=== PATIENT | female | born 1935 | race Caucasian/White ===

== ENCOUNTER 2016-08-26 09:40 | Emergency (ER) | payer OTHER ==
[~2016-08-26] VITALS: Ht 157.5 cm; Wt 78.0 kg
[~2016-08-26 09:40] MED LIST: ACET-1256 PO; AMLO-110 PO; ASPEC81 PO; ATV5 PO; CARV6.252 PO; CNT PO; ESCI1TAB9 PO; FLEC100T21 PO; HYDR25SU20 PR; LOPELIQ6 PO; LORA0.5T12 PO; PRLSR20 PO; TRIA75TA53 PO; WARF4TAB8 PO
[2016-08-26 09:55] VITALS: TEMP 36.8; Ht 157.5 cm; Wt 78.0 kg
[2016-08-26] MEDS ORDERED: SODIUM CHLORIDE 0.9% 1000ML 1,000 ML IV STA (10:15)
[2016-08-26] MEDS ORDERED: OPTIRAY 320 IV PRN (10:30)
[2016-08-26] MEDS ORDERED: MRLP527 PO (10:34)
[2016-08-26] MEDS ORDERED: ULT50 PO (10:34)
[2016-08-26] MEDS ORDERED: ASPI81TA28 PO (10:34)
[2016-08-26 10:50] LABS: ISTAT CREATININE 1.4 mg/dl (0.6-1.3); ISTAT HEMOGLOBIN 14.3 g/dl (12.0-16.0); ISTAT IONIZED CALCIUM 1.27 mmol/l (1.12-1.32)
[2016-08-26 10:56] LABS: BASO % 0.3 %; BASO ABS # 0.03 K/uL (0-0.2); COMPLETE YES; HEMATOCRIT 39.6 % (37-47); IG% 1.2 %; LYMPH % 18.8 %; LYMPH ABS # 1.63 K/uL (1.2-3.4); MEAN CELL VOLUME 91.9 fL (80-100); MEAN CORPUSCULAR HEMOGLOBIN 31.1 pg (25-34); MEAN CORPUSCULAR HGB CONC 33.8 g/dl (32-36); MEAN PLATELET VOLUME 9.4 fL (7.4-10.4); MONO % 14.3 %; NEUT % 63.4 %; PLATELET COUNT 342 K/uL (130-400); RED BLOOD COUNT 4.31 M/uL (4.2-5.4); WHITE BLOOD COUNT 8.69 K/uL (4.8-10.8)
[2016-08-26 11:03] LABS: ALT/SGPT 20 U/L (12-78); AST/SGOT 15 U/L (15-37); BLOOD UREA NITROGEN 26 mg/dl (7-18); BUN/CREATININE RATIO 17.1 (10-20); CALCIUM 10.4 mg/dl (8.5-10.1); CARBON DIOXIDE 27 mmol/L (21-32); CHLORIDE 102 mmol/L (98-107); GLUCOSE 109 mg/dl (70-99); MAGNESIUM 2.4 mg/dl (1.8-2.4); POTASSIUM 3.4 mmol/L (3.5-5.1); SODIUM 137 mmol/L (136-145)
[2016-08-26 11:06] LABS: ALKALINE PHOSPHATASE 69 U/L (45-117)
--- NOTE | 2016-08-26 11:12 | DIAGNOSTIC IMAGING REPORT ---
CT SCAN OF THE ABDOMEN AND PELVIS WITH IV CONTRAST CLINICAL HISTORY: Generalized abdominal pain of several weeks' duration. Melanotic stool. COMPARISON STUDY: Abdominal CT dated 06/06/2014. TECHNIQUE: Following the IV administration of 90 cc of Optiray 320, CT scan of the abdomen and pelvis is performed from the lung bases to the proximal femora. Images are reviewed in the axial, sagittal, and coronal planes. IV contrast was administered without complication. Automated dose control exposure was utilized. CT DOSE: 564.99 mGy.cm FINDINGS: Lung bases: The heart is normal in size and without pericardial effusion. The coronary arteries and aortic valve leaflets are densely calcified. There is a tiny hiatal hernia. The lung bases are clear noting bibasilar atelectasis. Liver: The contrast-enhanced liver is normal in size, contour, and attenuation. There is no intrahepatic biliary ductal dilatation. The hepatic veins and portal veins are patent. Gallbladder: Surgically absent noting clips in the gallbladder fossa. Spleen: Normal in size and attenuation. Pancreas: Atrophic and grossly unremarkable. Adrenal glands: Unremarkable. Kidneys: The contrast enhanced kidneys are atrophic and without hydronephrosis. The kidneys enhance symmetrically. Bilateral renal cysts measure up to 5.3 cm. Additional subcentimeter cortical hypodensities also likely represent cysts but are too small for definitive characterization. Abdominal vasculature: The abdominal aorta is normal in course and caliber noting advanced atherosclerotic calcification. Bowel: There are postoperative changes from right hemicolectomy with ileocolic anastomosis. A small bowel anastomosis is also identified in the right lower quadrant. No bowel obstruction is seen. Peritoneum: There is no intraperitoneal free air or abdominal ascites. Lymphadenopathy: None. Pelvic viscera: The bladder is normal as visualized. The endometrium appears thickened for age, measuring up to 1.4 cm. Parenchymal calcifications are noted in the uterus. No adnexal lesion is seen. Calcifications are noted in the left ovary. Skeletal structures: The skeletal structures are osteopenic. There is moderate lumbosacral spondylosis. Chronic compression deformities are seen at all levels between T12 and L4. Minimally retropulsed fragments are identified at L1. These were all present on the 2015 examination. No lytic or blastic lesions are seen. Sclerotic change is noted in the sacroiliac joints and pubic symphysis. IMPRESSION: 1. There are no acute infectious or inflammatory findings in the abdomen or pelvis. 2. There are postoperative changes from right hemicolectomy with ileocolic anastomosis. No bowel obstruction is seen. 3. The endometrium appears thickened for age measure up to 1.4 cm. Follow-up with a gynecology assessment and pelvic ultrasound is recommended. 4. Additional findings as above. Electronically signed by: Get Timmons M.D. 08/26/2016 11:11 AM Dictated Date/Time: 08/26/2016 11:04 AM
[2016-08-26 11:28] LABS: PARTIAL THROMBOPLASTIN RATIO 2.3; PROTHROMBIN TIME (PATIENT) 64.4 SECONDS (9.0-12.0)
[2016-08-26 11:32] LABS: INR 5.6 (0.9-1.1)
[2016-08-26 12:23] LABS: URINE APPEARANCE CLEAR (CLEAR); URINE BILIRUBIN NEG (NEG); URINE COLOR YELLOW; URINE EPITHELIAL CELL AUTO 0-5 /lpf (0-5); URINE NITRITE NEG (NEG); URINE SPECIFIC GRAVITY 1.022 (1.000-1.030); UROBILINOGEN NEG (NEG); ZZUR CULT IF INDIC CLEAN CATCH NO
[2016-08-26 12:25] LABS: MANUAL MICROSCOPIC REQUIRED? NO; REVIEW REQ? NO
--- NOTE | 2016-08-26 12:30 | DIAGNOSTIC IMAGING REPORT ---
CT LUMBAR SPINE WITHOUT CT DOSE: CLINICAL HISTORY: compression fracture, abd pain BACK PAIN TECHNIQUE: Helical images were acquired in transverse plane. Reformatted sagittal and coronal images were reviewed. CONTRAST: No contrast was administered COMPARISON STUDY: CT scan dated 06/06/2014 FINDINGS: There are progressive T12 and L1 compression fractures. There is minimal L1 retropulsion. There are old superior endplate compression deformities at the L3 and L4 levels. L1-2 level: There is minimal L1 retropulsion. There is no significant spinal or foraminal stenosis. L2-3 level: There is a circumferential disc bulge present with mild to moderate spinal stenosis. There is no significant foraminal narrowing. L3-4 level: There is a circumferential disc bulge with moderate spinal stenosis. There is no significant foraminal narrowing. L4-5 level: There is a circumferential disc bulge with moderate spinal stenosis. There is no significant foraminal narrowing. L5-S1 level: There is a mild circumferential disc bulge. There is no significant spinal stenosis. There is mild bilateral foraminal narrowing. IMPRESSION: 1. Multilevel spondylitic change with multilevel spinal stenosis. 2. Multilevel vertebral body compression fractures, progressive at the T12 and L1 levels when compared the prior 2014 study. Electronically signed by: Nilton Ramos M.D. 08/26/2016 12:29 PM Dictated Date/Time: 08/26/2016 12:20 PM
[2016-08-26 12:49] VITALS: BP 139/70; PULSE 72; O2SAT 93
--- NOTE | 2016-08-26 13:21 | EMERGENCY ROOM VISIT NOTE ---
History Report prepared by Nga: Lakhwinder Hoffmann Under the Supervision of: Dr. Geno Cavanaugh M.D. First contact with patient: 10:07 Chief Complaint: GI ASSESSMENT Stated Complaint: FELL X 7 WKS Nursing Triage Summary: having lower abdominal pain. I fell 7 weeks ago and I havent felt right since. I woke up this morning and my stool was pasty History of Present Illness The patient is a 81 year old female who presents to the Emergency Room with complaints of intermittent abdominal pain beginning seven weeks ago after a fall. She states that ever since she fell, that she "hasn't felt right". She states that she was gardening when she fell onto a brick surface. She states that a large gardening pot full of soil fell onto her abdomen during the fall. The patient's pain wraps around into her back occasionally. She also complains of fatigue, and black stool. She has been seen by her PCP three times for her symptoms and had x-rays in the office. The patient notes that she has been on Miralax for 6 weeks, and was previously having some diarrhea. Her dark stool began about a week ago. She is on Coumadin. Source of History: patient Onset: Seven weeks ago Position: abdomen Timing: intermittent Associated Symptoms: + back pain, + melena, + fatigue Review of Systems See HPI for pertinent positives & negatives. A total of 10 systems reviewed and were otherwise negative. Past Medical & Surgical Medical Problems: (1) Atrial fibrillation (2) Benign hypertension (3) Gastroesophageal reflux disease (4) Hernia, umbilical (5) Incisional hernia (6) personal history of colon cancer (7) Status post right knee replacement Family History Heart disease Social History Smoking Status: Never Smoker Alcohol Use: none Drug Use: none Marital Status: Housing Status: lives with family Occupation Status: retired Current/Historical Medications Scheduled Amlodipine (Norvasc), 5 MG PO DAILY Aspirin (Aspirin Ec), 81 MG PO DAILY Carvedilol (Coreg), 6.25 MG PO BID Flecainide (Tambocor), 50 MG PO BID Polyethylene (Polyethylene Glycol 3350), 17 GM PO BID Tramadol HCl (Tramadol HCl), 50 MG PO QID Triamterene/Hctz (Maxzide 75MG/50MG), 1 TAB PO DAILY Warfarin Sod (Jantoven), 4 MG PO WK Warfarin Sod (Jantoven), 2 MG PO 6XWK Allergies Coded Allergies: No Known Allergies (Unverified , 08/26/16) Physical Exam Vital Signs Date Time Temp Pulse Resp B/P (MAP) Pulse Ox O2 Delivery O2 Flow Rate FiO2 08/26/16 12:49 72 17 139/70 93 Room Air 08/26/16 11:33 67 16 147/79 92 Room Air 08/26/16 11:10 65 08/26/16 09:55 36.8 71 18 142/75 95 Room Air Physical Exam Vital signs reviewed. General: Well-appearing female, in no significant distress. HEENT: No scleral icterus, PERRLA, neck supple. Atraumatic. Cardiovascular: Regular rate and rhythm, no extra sounds. Pulmonary: Clear to auscultation bilaterally, normal work of breathing. Abdomen: Soft, nondistended, positive bowel sounds. Mild tenderness to the upper quadrants bilaterally. No rebound or guarding. Rectal: Heme negative, dark brown stool. Musculoskeletal: Atraumatic, no peripheral edema. Neurologic: Patient awake alert and oriented x 3, full strength in all 4 extremities. Cranial nerves 2 through 12 grossly intact. Skin: Warm, dry, no rash Medical Decision & Procedures ER Provider Diagnostic Interpretation: CT results as stated below per my review and radiologist interpretation: CT SCAN OF THE ABDOMEN AND PELVIS WITH IV CONTRAST FINDINGS: Lung bases: The heart is normal in size and without pericardial effusion. The coronary arteries and aortic valve leaflets are densely calcified. There is a tiny hiatal hernia. The lung bases are clear noting bibasilar atelectasis. Liver: The contrast-enhanced liver is normal in size, contour, and attenuation. There is no intrahepatic biliary ductal dilatation. The hepatic veins and portal veins are patent. Gallbladder: Surgically absent noting clips in the gallbladder fossa. Spleen: Normal in size and attenuation. Pancreas: Atrophic and grossly unremarkable. Adrenal glands: Unremarkable. Kidneys: The contrast enhanced kidneys are atrophic and without hydronephrosis. The kidneys enhance symmetrically. Bilateral renal cysts measure up to 5.3 cm. Additional subcentimeter cortical hypodensities also likely represent cysts but are too small for definitive characterization. Abdominal vasculature: The abdominal aorta is normal in course and caliber noting advanced atherosclerotic calcification. Bowel: There are postoperative changes from right hemicolectomy with ileocolic anastomosis. A small bowel anastomosis is also identified in the right lower quadrant. No bowel obstruction is seen. Peritoneum: There is no intraperitoneal free air or abdominal ascites. Lymphadenopathy: None. Pelvic viscera: The bladder is normal as visualized. The endometrium appears thickened for age, measuring up to 1.4 cm. Parenchymal calcifications are noted in the uterus. No adnexal lesion is seen. Calcifications are noted in the left ovary. Skeletal structures: The skeletal structures are osteopenic. There is moderate lumbosacral spondylosis. Chronic compression deformities are seen at all levels between T12 and L4. Minimally retropulsed fragments are identified at L1. These were all present on the 2015 examination. No lytic or blastic lesions are seen. Sclerotic change is noted in the sacroiliac joints and pubic symphysis. IMPRESSION: 1. There are no acute infectious or inflammatory findings in the abdomen or pelvis. 2. There are postoperative changes from right hemicolectomy with ileocolic anastomosis. No bowel obstruction is seen. 3. The endometrium appears thickened for age measure up to 1.4 cm. Follow-up with a gynecology assessment and pelvic ultrasound is recommended. 4. Additional findings as above. Electronically signed by: Get Timmons M.D. CT LUMBAR SPINE WITHOUT FINDINGS: There are progressive T12 and L1 compression fractures. There is minimal L1 retropulsion. There are old superior endplate compression deformities at the L3 and L4 levels. L1-2 level: There is minimal L1 retropulsion. There is no significant spinal or foraminal stenosis. L2-3 level: There is a circumferential disc bulge present with mild to moderate spinal stenosis. There is no significant foraminal narrowing. L3-4 level: There is a circumferential disc bulge with moderate spinal stenosis. There is no significant foraminal narrowing. L4-5 level: There is a circumferential disc bulge with moderate spinal stenosis. There is no significant foraminal narrowing. L5-S1 level: There is a mild circumferential disc bulge. There is no significant spinal stenosis. There is mild bilateral foraminal narrowing. IMPRESSION: 1. Multilevel spondylitic change with multilevel spinal stenosis. 2. Multilevel vertebral body compression fractures, progressive at the T12 and L1 levels when compared the prior 2015 study. Electronically signed by: Nilton Ramos M.D. Laboratory Results 08/26/16 10:25 Red Blood Count 4.31, Mean Corpuscular Volume 91.9, Mean Corpuscular Hemoglobin 31.1, Mean Corpuscular Hemoglobin Concent 33.8, Mean Platelet Volume 9.4, Neutrophils (%) (Auto) 63.4, Lymphocytes (%) (Auto) 18.8, Monocytes (%) (Auto) 14.3, Eosinophils (%) (Auto) 2.0, Basophils (%) (Auto) 0.3, Neutrophils # (Auto ) 5.52, Lymphocytes # (Auto) 1.63, Monocytes # (Auto) 1.24, Eosinophils # (Auto ) 0.17, Basophils # (Auto) 0.03 08/26/16 10:25 Test 08/26/16 10:25 08/26/16 10:33 08/26/16 12:00 White Blood Count 8.69 K/uL (4.8-10.8) Red Blood Count 4.31 M/uL (4.2-5.4) Hemoglobin 13.4 g/dL (12.0-16.0) Hematocrit 39.6 % (37-47) Mean Corpuscular Volume 91.9 fL (80-100) Mean Corpuscular Hemoglobin 31.1 pg (25-34) Mean Corpuscular Hemoglobin Concent 33.8 g/dl (32-36) Platelet Count 342 K/uL (130-400) Mean Platelet Volume 9.4 fL (7.4-10.4) Neutrophils (%) (Auto) 63.4 % Lymphocytes (%) (Auto) 18.8 % Monocytes (%) (Auto) 14.3 % Eosinophils (%) (Auto) 2.0 % Basophils (%) (Auto) 0.3 % Neutrophils # (Auto) 5.52 K/uL (1.4-6.5) Lymphocytes # (Auto) 1.63 K/uL (1.2-3.4) Monocytes # (Auto) 1.24 K/uL (0.11-0.59) Eosinophils # (Auto) 0.17 K/uL (0-0.5) Basophils # (Auto) 0.03 K/uL (0-0.2) RDW Standard Deviation 48.8 fL (36.4-46.3) RDW Coefficient of Variation 14.3 % (11.5-14.5) Immature Granulocyte % (Auto) 1.2 % Immature Granulocyte # (Auto) 0.10 K/uL (0.00-0.02) Prothrombin Time 64.4 SECONDS (9.0-12.0) Prothromb Time International Ratio 5.6 (0.9-1.1) Activated Partial Thromboplast Time 59.2 SECONDS (21.0-31.0) Partial Thromboplastin Ratio 2.3 Est Creatinine Clear Calc Drug Dose 28.9 ml/min Estimated GFR () 37.7 Estimated GFR (Non- 32.6 BUN/Creatinine Ratio 17.1 (10-20) Calcium Level 10.4 mg/dl (8.5-10.1) Magnesium Level 2.4 mg/dl (1.8-2.4) Total Bilirubin 0.4 mg/dl (0.2-1) Direct Bilirubin < 0.1 mg/dl (0-0.2) Aspartate Amino Transf (AST/SGOT) 15 U/L (15-37) Alanine Aminotransferase (ALT/SGPT) 20 U/L (12-78) Alkaline Phosphatase 69 U/L (45-117) Total Protein 7.7 gm/dl (6.4-8.2) Albumin 3.0 gm/dl (3.4-5.0) Lipase 67 U/L (73-393) Bedside Hemoglobin 14.3 g/dl (12.0-16.0) Bedside Hematocrit 42 % (37-47) Bedside Sodium 138 mEq/L (135-144) Bedside Potassium 3.4 mEq/L (3.3-5.0) Bedside Chloride 98 mEq/L (101-112) Bedside Total CO2 27 mEq/l (24-31) Anion Gap 16.0 mmol/L (16-25) Bedside Blood Urea Nitrogen 26 mg/dl (7-18) Bedside Creatinine 1.4 mg/dl (0.6-1.3) Bedside Glucose (other) 115 mg/dl (70-99) Bedside Ionized Calcium (Colleen) 1.27 mmol/l (1.12-1.32) Urine Color YELLOW Urine Appearance CLEAR (CLEAR) Urine pH 7.0 (4.5-7.5) Urine Specific Tower 1.022 (1.000-1.030) Urine Protein NEG (NEG) Urine Glucose (UA) NEG (NEG) Urine Ketones NEG (NEG) Urine Occult Blood TRACE (NEG) Urine Nitrite NEG (NEG) Urine Bilirubin NEG (NEG) Urine Urobilinogen NEG (NEG) Urine Leukocyte Esterase NEG (NEG) Urine WBC (Auto) 0 /hpf (0-5) Urine RBC (Auto) 0-4 /hpf (0-4) Urine Hyaline Casts (Auto) 0 /lpf (0-5) Urine Epithelial Cells (Auto) 0-5 /lpf (0-5) Urine Bacteria (Auto) NEG (NEG) Laboratory results per my review. Medications Administered Medications (Trade) Dose Ordered Sig/[place] Route Start Time Stop Time Status Last Admin Dose Admin Sodium Chloride 1,000 ml @ 125 mls/hr Q8H STAT IV 08/26/16 10:15 08/26/16 13:26 DC 08/26/16 11:07 125 MLS/HR ECG Indication: abdominal pain Rate (beats per minute): 64 Rhythm: normal sinus Findings: LBBB, no acute ischemic change, no ectopy, other (LAD) Comparison ECG Date: june 13, 2016 ED Course 1012: Past medical records reviewed. The patient was evaluated in room B2. A complete history and physical examination was performed. 1015: Ordered Sodium Chloride 1000 ml @ 125 mls/hr IV. 1310: Upon reevaluation, the patient appeared to have improvement of her symptoms. I discussed findings with her. She verbalized agreement of the treatment plan. The patient was discharged home. Medical Decision Differential diagnosis: Etiologies such as appendicitis, lumbar radiculopathy, diverticulitis, PUD, biliary pathology, UTI, pancreatitis, obstruction, mesenteric ischemia, aortic pathology, infections, inflammatory bowel disease, renal colic, as well as others were entertained. Blood Pressure Screening: Patient was found to have an elevated blood pressure and was referred to their primary doctor for recheck and further treatment. Medication Reconciliation: I attest that I have personally reviewed the patient' s current medication list. This patient was evaluated and appeared to be in no significant distress. Patient had mild abdominal tenderness without rebound or guarding. She complains of lumbar back pain. CT scan abdomen and pelvis was performed and reveals no evidence of acute inflammatory or infectious findings. Lumbar reconstruction images reveal several compression fractures which are likely continue into the patient's pain. I did explain my findings to the patient and family. I do not feel that there is an acute intra-abdominal process rather this is likely a lumbar radiculopathy. Patient is found have an elevated INR at 5.6. She was advised to hold her Coumadin for 2 days and have follow up with the Coumadin clinic at that time. Patient was instructed to use her Tylenol and Ultram as directed. She will continue with physical therapy as prescribed. Patient will return to the ER for worsening of symptoms or any medical concerns. Impression Primary Impression: Lumbar compression fracture Additional Impression: Supratherapeutic INR Scribe Attestation The scribe's documentation has been prepared under my direction and personally reviewed by me in its entirety. I confirm that the note above accurately reflects all work, treatment, procedures, and medical decision making performed by me. Departure Information Dispostion Home / Self-Care Referrals Bety Chaudhry M.D. (PCP) Forms HOME CARE DOCUMENTATION FORM, IMPORTANT VISIT INFORMATION Patient Instructions ED Fx Comp Vertebral, My [facility] Additional Instructions Diagnosis: Lumbar compression fractures, elevated INR 5.6 Ultram as prescribed for pain. Hold your coumadin for 2 days. Follow up with physical therapy as directed. Return to the ED for worsening of symptoms or any medical concerns. Problem Qualifiers
[2016-11-10] MEDS ORDERED: OMEP20TA PO (10:57)
[2016-11-10] MEDS ORDERED: MULTTAB5 (10:57)
== END 2016-08-26 13:22 | disposition home or self-care (01) ==
LOC: C.EDB 09:41
DX: S32.010A Wedge compression fracture of first lumbar vertebra, initial encounter for closed fracture (principal); W19.XXXA Unspecified fall, initial encounter; Y93.H2 Activity, gardening and landscaping; R79.1 Abnormal coagulation profile; Z79.01 Long term (current) use of anticoagulants; I48.91 Unspecified atrial fibrillation; I10 Essential (primary) hypertension; K21.9 Gastro-esophageal reflux disease without esophagitis; Z85.038 Personal history of other malignant neoplasm of large intestine; Z96.651 Presence of right artificial knee joint; Z79.82 Long term (current) use of aspirin; Z79.899 Other long term (current) drug therapy

== ENCOUNTER 2016-11-30 06:04 | Emergency (ER) | payer OTHER ==
[~2016-11-30] VITALS: Ht 157.5 cm; Wt 76.6 kg
[~2016-11-30 06:04] MED LIST changes: -ACET-1256 PO; -ASPEC81 PO; +ASPI81TA28 PO; -ATV5 PO; -CNT PO; -ESCI1TAB9 PO; -HYDR25SU20 PR; -LOPELIQ6 PO; -LORA0.5T12 PO; +MRLP527 PO; +MULTTAB5; +OMEP20TA PO; -PRLSR20 PO; +ULT50 PO
[2016-11-30 06:07] VITALS: TEMP 36.9; Ht 157.5 cm; Wt 76.6 kg
[2016-11-30] MEDS ORDERED: CYAN100T6 PO (06:21)
[2016-11-30] MEDS ORDERED: MoRPHine SULFATE 10 MG/ML CARP/VIAL IV STA (06:42)
[2016-11-30] MEDS ORDERED: MoRPHine SULFATE 4 MG/ML 1 ML CARP\\VIAL ONE (06:59)
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
[2016-11-30 07:27] LABS: BASO % 0.2 %; BASO ABS # 0.02 K/uL (0-0.2); COMPLETE YES; EOS % 1.3 %; HEMATOCRIT 33.7 % (37-47); IG% 0.3 %; LYMPH % 14.9 %; LYMPH ABS # 1.41 K/uL (1.2-3.4); MEAN CELL VOLUME 92.3 fL (80-100); MEAN CORPUSCULAR HEMOGLOBIN 29.9 pg (25-34); MEAN CORPUSCULAR HGB CONC 32.3 g/dl (32-36); MEAN PLATELET VOLUME 9.6 fL (7.4-10.4); MONO % 7.1 %; NEUT % 76.2 %; PLATELET COUNT 275 K/uL (130-400); RED BLOOD COUNT 3.65 M/uL (4.2-5.4); WHITE BLOOD COUNT 9.45 K/uL (4.8-10.8)
[2016-11-30] MEDS ORDERED: KETOROLAC TROMETHAMINE 30 MG/ML VIAL IV STA (07:46)
[2016-11-30 07:48] LABS: BUN/CREATININE RATIO 23.4 (10-20); CALCIUM 9.7 mg/dl (8.5-10.1); CREATININE 1.3 mg/dl (0.60-1.20); POTASSIUM 3.2 mmol/L (3.5-5.1)
[2016-11-30] MEDS ORDERED: OXYC-57 PO (08:29)
--- NOTE | 2016-11-30 08:30 | EMERGENCY ROOM VISIT NOTE ---
History Report prepared by Nga: Lakhwinder Hoffmann Under the Supervision of: Dr. Pratik Gonzalez D.O. First contact with patient: 06:39 Chief Complaint: HEAD PAIN Stated Complaint: PAIN IN HEAD GOING DOWN BACK OF NECK History of Present Illness The patient is a 81 year old female who presents to the Emergency Room with complaints of constant lower posterior head and upper neck pain beginning last night. She describes the pain as "throbbing", and rates it as a 10/10 in severity. She took Tramadol for her pain, which she has prescribed for chronic back pain, but has seen minimal relief. The patient denies visual changes, problems with balance, fevers, nausea, vomiting, abdominal pain, chest pain, or SOB. She states that she had similar symptoms two days ago that resolved before returning last night. She states that she had similar symptoms occur three weeks ago, and was seen by a chiropractor which improved her pain. The patient has a history of a recent lumbar fracture. She is on Coumadin for A-fib. Source of History: patient Onset: Last night Position: head (lower posterior), neck (upper) Symptom Intensity: 10/10 Quality: other ("throbbing") Timing: constant Associated Symptoms: No fevers, No chest pain, No SOB, No nausea, No vomiting, No abdominal pain Note: The patient denies visual changes, and problems with balance. Review of Systems See HPI for pertinent positives & negatives. A total of 10 systems reviewed and were otherwise negative. Past Medical & Surgical Medical Problems: (1) Atrial fibrillation (2) Benign hypertension (3) Gastroesophageal reflux disease (4) Hernia, umbilical (5) Incisional hernia (6) personal history of colon cancer (7) Status post right knee replacement Family History Heart disease Social History Smoking Status: Never Smoker Alcohol Use: none Drug Use: none Marital Status: Housing Status: lives with family Occupation Status: retired Current/Historical Medications Scheduled Amlodipine (Norvasc), 5 MG PO DAILY Aspirin (Aspirin Ec), 81 MG PO DAILY Carvedilol (Coreg), 6.25 MG PO BID Cyanocobalamin (Vitamin B12 100 Mcg), Unknown Dose PO DAILY Flecainide (Tambocor), 50 MG PO BID Omeprazole (Omeprazole), 1 TAB PO DAILY Triamterene/Hctz (Maxzide 75MG/50MG), 1 TAB PO DAILY Warfarin Sod (Jantoven), 4 MG PO WK Warfarin Sod (Jantoven), 2 MG PO 6XWK Scheduled PRN Tramadol HCl (Tramadol HCl), 50 MG PO QID PRN for Pain Allergies Coded Allergies: No Known Allergies (Unverified , 11/30/16) Physical Exam Vital Signs Date Time Temp Pulse Resp B/P (MAP) Pulse Ox O2 Delivery O2 Flow Rate FiO2 11/30/16 07:54 68 16 162/68 97 Room Air 11/30/16 06:07 36.9 70 18 130/67 97 Room Air Physical Exam CONSTITUTIONAL/VITAL SIGNS: Reviewed / noted above. GENERAL: Non-toxic in appearance. INTEGUMENTARY: Warm, dry, and [place]. HEAD: Normocephalic. EYES: without scleral icterus or trauma. ENT/OROPHARYNX: clear and moist. LYMPHADENOPATHY/NECK: Is supple without lymphadenopathy or meningismus. Tenderness to palpation of the posterior cervical musculature. RESPIRATORY: Lungs clear and equal. CARDIOVASCULAR: Regular rate and rhythm. GI/ABDOMEN: Soft and nontender. No organomegaly or pulsatile mass. No rebound or guarding. Normal bowel sounds. EXTREMITIES: Warm and well perfused. BACK: No CVA tenderness. NEUROLOGICAL: Intact without focal deficits. PSYCHIATRIC: normal affect. MUSCULOSKELETAL: Normally developed with good muscle tone. Medical Decision & Procedures ER Provider Diagnostic Interpretation: Radiology results as stated below per my review and radiologist interpretation: CT HEAD WITHOUT CONTRAST (CT) FINDINGS: No intra or extra-axial mass lesions are visualized. There is no CT evidence of acute cortical infarction. There is no evidence of midline shift. There is no acute hemorrhage. No calvarial fractures are visualized. There are moderate white matter hypodensities likely on a small vessel basis. There is no evidence of pathologic ventricular dilatation. There is no evidence of acute sinusitis IMPRESSION: No acute intracranial findings Electronically signed by: Nilton Ramos M.D. 11/30/2016 7:[address] OF THE CERVICAL SPINE FINDINGS: The visualized portions of the lung apices reveal no evidence of pneumothorax. The prevertebral soft tissues are normal. No fractures or subluxations are visualized. There are multilevel degenerative changes IMPRESSION: No evidence of acute fracture or traumatic subluxation. Electronically signed by: Nilton Ramos M.D. 11/30/2016 7:09 AM Laboratory Results 11/30/16 07:15 Red Blood Count 3.65, Mean Corpuscular Volume 92.3, Mean Corpuscular Hemoglobin 29.9, Mean Corpuscular Hemoglobin Concent 32.3, Mean Platelet Volume 9.6, Neutrophils (%) (Auto) 76.2, Lymphocytes (%) (Auto) 14.9, Monocytes (%) (Auto) 7.1, Eosinophils (%) (Auto) 1.3, Basophils (%) (Auto) 0.2, Neutrophils # (Auto) 7.20, Lymphocytes # (Auto) 1.41, Monocytes # (Auto) 0.67, Eosinophils # (Auto) 0.12, Basophils # (Auto) 0.02 11/30/16 07:15 Test 11/30/16 07:15 White Blood Count 9.45 K/uL (4.8-10.8) Red Blood Count 3.65 M/uL (4.2-5.4) Hemoglobin 10.9 g/dL (12.0-16.0) Hematocrit 33.7 % (37-47) Mean Corpuscular Volume 92.3 fL (80-100) Mean Corpuscular Hemoglobin 29.9 pg (25-34) Mean Corpuscular Hemoglobin Concent 32.3 g/dl (32-36) Platelet Count 275 K/uL (130-400) Mean Platelet Volume 9.6 fL (7.4-10.4) Neutrophils (%) (Auto) 76.2 % Lymphocytes (%) (Auto) 14.9 % Monocytes (%) (Auto) 7.1 % Eosinophils (%) (Auto) 1.3 % Basophils (%) (Auto) 0.2 % Neutrophils # (Auto) 7.20 K/uL (1.4-6.5) Lymphocytes # (Auto) 1.41 K/uL (1.2-3.4) Monocytes # (Auto) 0.67 K/uL (0.11-0.59) Eosinophils # (Auto) 0.12 K/uL (0-0.5) Basophils # (Auto) 0.02 K/uL (0-0.2) RDW Standard Deviation 51.0 fL (36.4-46.3) RDW Coefficient of Variation 15.0 % (11.5-14.5) Immature Granulocyte % (Auto) 0.3 % Immature Granulocyte # (Auto) 0.03 K/uL (0.00-0.02) Erythrocyte Sedimentation Rate 77 mm/hr (0-21) Anion Gap 7.0 mmol/L (3-11) Est Creatinine Clear Calc Drug Dose 33.1 ml/min Estimated GFR () 44.9 Estimated GFR (Non- 38.7 BUN/Creatinine Ratio 23.4 (10-20) Calcium Level 9.7 mg/dl (8.5-10.1) Chemistry Specimen Hemolysis Laboratory results as stated above per my review. Medications Administered Medications (Trade) Dose Ordered Sig/[place] Route Start Time Stop Time Status Last Admin Dose Admin Morphine Sulfate (MoRPHine SULFATE INJ) 4 mg STK-MED ONCE .ROUTE 11/30/16 06:59 11/30/16 07:00 DC 11/30/16 07:02 4 MG Ketorolac Tromethamine (Toradol Inj) 15 mg NOW STAT IV 11/30/16 07:46 11/30/16 07:47 DC 11/30/16 07:52 15 MG ED Course 0621: Previous medical records were reviewed. The patient was evaluated in room A11B. A complete history and physical examination was performed. 0642: Ordered Morphine Sulfate 4 mg IV. 0746: Ordered Toradol Inj 15 mg IV. 0823: On reevaluation, the patient is resting comfortably. I discussed the results and findings with the patient. She verbalized agreement of the treatment plan. The patient was discharged home. Medical Decision Differential includes: Acute intracranial bleed, trauma, meningitis, encephalitis, increased intracranial pressure, mass or mass effect, facial or dental infection, temporal arteritis, CVA, TIA, acute hypertensive emergency, sinusitis, carbon monoxide exposure. This is an 81-year-old female who presents to the ED with a chief complaint of occipital and neck pain. The patient states that it is acute and throbbing. She states that she had on Wednesday, it went away and then returned last night. She also had similar pain 3 weeks ago for which she sought chiropractor care and that seemed to help as well. The patient is also currently on tramadol chronically. She has also been seen by pain management for back problems. She denies any neurological symptoms. Her pain is worse with movement. She is chronically on Coumadin for A. fib. The patient's exam reveals tenderness to palpation of the cervical musculature. There is otherwise no abnormalities. Vital signs are normal. CT scan of the brain and neck did not show any abnormalities. Sedimentation rate was elevated at 77. She does not have any tenderness of the temporal arteries. BUN is 30 and creatinine is 1.3. The patient was treated with IV Toradol and IV morphine. She was told the results. She is felt to be stable for discharge and outpatient follow-up. I recommended follow-up with pain management/PCP. Medication Reconcilliation Current Medication List: was personally reviewed by me Blood Pressure Screening Patient's blood pressure: Elevated blood pressure Blood pressure disposition: Elevated BP felt to be situational Impression Primary Impression: Cervicalgia Scribe Attestation The scribe's documentation has been prepared under my direction and personally reviewed by me in its entirety. I confirm that the note above accurately reflects all work, treatment, procedures, and medical decision making performed by me. Departure Information Dispostion Home / Self-Care Prescriptions Oxycodone/Acetaminophen 5MG/325MG (PERCOCET 5MG/325MG) Tab 1 TAB PO Q6H Y for Pain, #20 TAB Prov: Pratik Gonzalez D.O. 11/30/16 Referrals Bety Chaudhry M.D. (PCP) Forms HOME CARE DOCUMENTATION FORM, IMPORTANT VISIT INFORMATION, WORK / SCHOOL INSTRUCTIONS Patient Instructions My [employer] Additional Instructions Percocet as prescribed. No driving within 6 hours of use. Do not take additional Tylenol while taking Percocet. Follow-up with your doctor for further care and evaluation in 1-2 days. Return to the emergency department for worsening or new symptoms or any concerns. You have been examined and treated today on an emergency basis only. This is not a substitute for, or an effort to provide, complete comprehensive medical care. It is impossible to recognize and treat all injuries or illnesses in a single emergency department visit. It is therefore important that you follow up closely with your doctor. Call as soon as possible for an appointment.
[2016-11-30 09:02] VITALS: BP 155/75; PULSE 68; O2SAT 97
== END 2016-11-30 09:19 | disposition home or self-care (01) ==
LOC: C.EDB 06:05 → C.EDA 09:19
DX: M54.2 Cervicalgia (principal); G89.29 Other chronic pain; M54.9 Dorsalgia, unspecified; Z79.01 Long term (current) use of anticoagulants; I48.91 Unspecified atrial fibrillation; I10 Essential (primary) hypertension; K21.9 Gastro-esophageal reflux disease without esophagitis; Z85.038 Personal history of other malignant neoplasm of large intestine; Z96.651 Presence of right artificial knee joint; Z79.82 Long term (current) use of aspirin; Z79.899 Other long term (current) drug therapy

== ENCOUNTER 2017-01-23 09:10 | Inpatient (IN) | payer OTHER ==
[~2017-01-23] VITALS: Ht 157.5 cm; Wt 74.8 kg
[~2017-01-23 09:10] MED LIST changes: +CYAN100T6 PO; -MRLP527 PO; -MULTTAB5; +OXYC-57 PO
[2017-01-23] MEDS ORDERED: SODIUM CHLORIDE 0.9% 1000ML 500 ML IV STA (09:36)
[2017-01-23] MEDS ORDERED: SODIUM CHLORIDE 0.9% 1000ML 1,000 ML IV STA (09:36)
[2017-01-23] MEDS ORDERED: ONDANSETRON INJ 2 MG/ML 2 ML VIAL IV STA (09:39)
[2017-01-23] MEDS ORDERED: MoRPHine SULFATE 4 MG/ML 1 ML CARP\\VIAL IV STA (09:39)
[2017-01-23] MEDS ORDERED: MoRPHine SULFATE 2 MG/ML CARP ONE (09:58)
--- NOTE | 2017-01-23 10:03 | EMERGENCY ROOM VISIT NOTE ---
History Report prepared by Nga: Jenna Frank Under the Supervision of: Dr. David Rios M.D. First contact with patient: 09:35 Chief Complaint: NAUSEA Stated Complaint: PAIN AND NAUSEA History of Present Illness The patient is a 81 year old female who presents to the Emergency Room with complaints of nausea beginning 2 days ago. The patient reports having abdominal pain first, and then began vomiting yesterday morning. She states that she has thrown up 5 times, including this morning. The patient rates her abdominal pain at a 4/10. She also reports having chills. The patient states that she has been taking Tylenol and also took Tramadol for her leg. She also reports taking nausea medication yesterday. Pt denies LOC, headache, fevers, diaphoresis, visual changes, neck pain, chest pain, breathing difficulties, back pain, melena, hematochezia, urinary symptoms, numbness, weakness, rash, or other complaints. The patient reports a history of atrial fibrillation, colon resection, and 6 hernias. She states that she is on Coumadin. She denies a history of an appendectomy. Source of History: patient Onset: 2 days ago Position: other (global) Quality: other (nausea) Associated Symptoms: + chills, + vomiting, No diarrhea Review of Systems See HPI for pertinent positives and negatives. A total of ten systems were reviewed and were otherwise negative. Past Medical & Surgical Medical Problems: (1) Atrial fibrillation (2) Benign hypertension (3) Colon cancer (4) Gastroesophageal reflux disease (5) Hernia, umbilical (6) Incisional hernia (7) personal history of colon cancer (8) Postoperative pain, acute, knee (9) SBO (small bowel obstruction) (10) Status post right knee replacement Surgical Problems: (1) History of colon resection (2) S/P colon resection (3) S/P knee replacement Family History Heart disease Social History Smoking Status: Never Smoker Alcohol Use: none Drug Use: none Marital Status: Housing Status: lives with family Occupation Status: retired Current/Historical Medications Scheduled Amlodipine (Norvasc), 5 MG PO DAILY Aspirin (Aspirin Ec), 81 MG PO DAILY Carvedilol (Coreg), 6.25 MG PO BID Cyanocobalamin (B-12), 100 MCG PO DAILY Flecainide (Tambocor), 50 MG PO BID Omeprazole (Omeprazole), 20 MG PO QAM Triamterene/Hctz (Maxzide 75MG/50MG), 1 TAB PO DAILY Warfarin Sod (Jantoven), 4 MG PO WK Warfarin Sod (Jantoven), 2 MG PO 6XWK Scheduled PRN Lorazepam (Ativan), 0.25 MG PO TID PRN for Anxiety/Agitation Tramadol HCl (Tramadol HCl), 50 MG PO QID PRN for Pain Allergies Coded Allergies: No Known Allergies (Unverified , 01/23/17) Physical Exam Vital Signs Date Time Temp Pulse Resp B/P (MAP) Pulse Ox O2 Delivery O2 Flow Rate FiO2 01/23/17 11:36 86 22 171/105 96 Room Air 01/23/17 10:32 68 01/23/17 09:13 37.0 78 17 140/81 95 Room Air Physical Exam GENERAL: Awake, alert, well-appearing, in no distress HENT: Normocephalic, atraumatic. Oropharynx unremarkable. EYES: Normal conjunctiva. Sclera non-icteric. NECK: Supple. No nuchal rigidity. FROM. No JVD. RESPIRATORY: Clear to auscultation. CARDIAC: Regular rate, normal rhythm. Extremities warm and well perfused. Pulses equal. ABDOMEN: Soft, non-distended. Moderate right lower quadrant with guarding and tenderness to percussion. No rebound or guarding. No masses. RECTAL: Deferred. MUSCULOSKELETAL: Chest examination reveals no tenderness. The back is symmetrical on inspection without obvious abnormality. There is no CVA tenderness to palpation. No joint edema. LOWER EXTREMITIES: Calves are equal size bilaterally and non-tender. No edema. No discoloration. NEURO: Normal sensorium. No sensory or motor deficits noted. SKIN: No rash or jaundice noted. Medical Decision & Procedures ER Provider Diagnostic Interpretation: Radiology results as stated below per my review and radiologist interpretation: ABDOMEN AND PELVIS CT WITHOUT CONTRAST CT DOSE: 764.26 mGy.cm HISTORY: Acute upper abdominal pain with vomiting upper abd pain, vomiting TECHNIQUE: Multiaxial CT images of the abdomen and pelvis were performed without contrast. A dose lowering technique was utilized adhering to the principles of ALARA. COMPARISON STUDY: CT abdomen and pelvis 08/26/2016. FINDINGS: Bibasilar groundglass and linear subsegmental consolidative opacities suggest atelectasis/scarring. There is no pneumatosis or pneumoperitoneum identified. Imaged inferior cardiac chambers are mildly enlarged. Blurred calcifications of the left ventricle suggests prior infarction. Coronary arterial and aortic annular calcifications are noted. Prior cholecystectomy. The liver, and spleen are unremarkable. There is mild thickening of the adrenal glands bilaterally. There is severe diffuse pancreatic atrophy. Column of Jeff is noted on the left with possible duplicated collecting system. Low attenuating lesions of the kidneys bilaterally suggesting cysts, largest of which is within the superior pole left kidney, 5.0 x 4.7 cm. Multifocal areas of cortical thinning are noted bilaterally. Punctate calcification of the interpolar left kidney suggests nonobstructing calculus. Punctate nonobstructing calculi are also seen within the interpolar right kidney. Ureters and urinary bladder are unremarkable. Vascular calcifications involve the uterus. Indeterminate soft tissue and calcification is again seen within the left adnexum overall measuring up to 2.4 x 1.4 cm, unchanged. There is moderate atherosclerosis and tortuosity of the thoracic aorta. Diastases recti with postsurgical changes of the anterior abdominal wall. Postoperative changes are seen compatible with prior right hemicolectomy with ileocolic anastomosis. Mild colonic diverticulosis without diverticulitis. The distal ileum is collapsed. There are multiple dilated loops of small bowel with air-fluid levels within the mid and lower abdomen with small bowel loops within the right lower abdomen measuring up to 4.4 cm. Transition point appears to be present within angular bowel of the right lower quadrant adjacent to a right inguinal hernia containing obstructed loop of small bowel (see image 312 of series 3). There is mild associated reactive mesenteric edema. Soft tissues are unremarkable. The bones appear demineralized and appear intact. Multilevel degenerative changes of the spine. Compression deformities are seen within the T12 and L1 vertebral bodies with Schmorl's nodes at L3 and L4, unchanged from comparison. IMPRESSION: 1. Findings compatible with high-grade small bowel obstruction secondary to obstructing right inguinal hernia. No pneumatosis or pneumoperitoneum. 2. Postoperative changes compatible with prior right hemicolectomy with ileocolic anastomosis. 3. Prior cholecystectomy. 4. Additional findings as above. Electronically signed by: Mikey Orozco M.D. 01/23/2017 10:51 AM Dictated Date/Time: 01/23/2017 10:33 AM Laboratory Results 01/23/17 09:50 Red Blood Count 4.10, Mean Corpuscular Volume 91.7, Mean Corpuscular Hemoglobin 32.0, Mean Corpuscular Hemoglobin Concent 34.8, Mean Platelet Volume 9.9, Neutrophils (%) (Auto) 73.7, Lymphocytes (%) (Auto) 12.4, Monocytes (%) (Auto) 13.5, Eosinophils (%) (Auto) 0.1, Basophils (%) (Auto) 0.1, Neutrophils # (Auto ) 6.57, Lymphocytes # (Auto) 1.11, Monocytes # (Auto) 1.20, Eosinophils # (Auto ) 0.01, Basophils # (Auto) 0.01 01/23/17 09:50 01/23/17 11:08 Test 01/23/17 09:50 01/23/17 11:08 White Blood Count 8.92 K/uL (4.8-10.8) Red Blood Count 4.10 M/uL (4.2-5.4) Hemoglobin 13.1 g/dL (12.0-16.0) Hematocrit 37.6 % (37-47) Mean Corpuscular Volume 91.7 fL (80-100) Mean Corpuscular Hemoglobin 32.0 pg (25-34) Mean Corpuscular Hemoglobin Concent 34.8 g/dl (32-36) Platelet Count 270 K/uL (130-400) Mean Platelet Volume 9.9 fL (7.4-10.4) Neutrophils (%) (Auto) 73.7 % Lymphocytes (%) (Auto) 12.4 % Monocytes (%) (Auto) 13.5 % Eosinophils (%) (Auto) 0.1 % Basophils (%) (Auto) 0.1 % Neutrophils # (Auto) 6.57 K/uL (1.4-6.5) Lymphocytes # (Auto) 1.11 K/uL (1.2-3.4) Monocytes # (Auto) 1.20 K/uL (0.11-0.59) Eosinophils # (Auto) 0.01 K/uL (0-0.5) Basophils # (Auto) 0.01 K/uL (0-0.2) RDW Standard Deviation 52.1 fL (36.4-46.3) RDW Coefficient of Variation 15.5 % (11.5-14.5) Immature Granulocyte % (Auto) 0.2 % Immature Granulocyte # (Auto) 0.02 K/uL (0.00-0.02) Urine Color YELLOW Urine Appearance CLOUDY (CLEAR) Urine pH 8.0 (4.5-7.5) Urine Specific [place] 1.020 (1.000-1.030) Urine Protein NEG (NEG) Urine Glucose (UA) NEG (NEG) Urine Ketones NEG (NEG) Urine Occult Blood NEG (NEG) Urine Nitrite NEG (NEG) Urine Bilirubin NEG (NEG) Urine Urobilinogen NEG (NEG) Urine Leukocyte Esterase TRACE (NEG) Urine WBC (Auto) 1-5 /hpf (0-5) Urine RBC (Auto) 5-10 /hpf (0-4) Urine Hyaline Casts (Auto) 5-10 /lpf (0-5) Urine Epithelial Cells (Auto) >30 /lpf (0-5) Urine Bacteria (Auto) NEG (NEG) Anion Gap 8.0 mmol/L (3-11) Est Creatinine Clear Calc Drug Dose 31.4 ml/min Estimated GFR () 42.1 Estimated GFR (Non- 36.3 BUN/Creatinine Ratio 28.4 (10-20) Calcium Level 10.0 mg/dl (8.5-10.1) Total Bilirubin 0.6 mg/dl (0.2-1) Alanine Aminotransferase (ALT/SGPT) 16 U/L (12-78) Alkaline Phosphatase 50 U/L (45-117) Total Protein 7.4 gm/dl (6.4-8.2) Albumin 3.4 gm/dl (3.4-5.0) Lipase 48 U/L (73-393) Prothrombin Time 26.9 SECONDS (9.0-12.0) Prothromb Time International Ratio 2.4 (0.9-1.1) Activated Partial Thromboplast Time 37.1 SECONDS (21.0-31.0) Partial Thromboplastin Ratio 1.4 Direct Bilirubin 0.1 mg/dl (0-0.2) Aspartate Amino Transf (AST/SGOT) 15 U/L (15-37) Laboratory results reviewed by me Medications Administered Medications (Trade) Dose Ordered Sig/[place] Route Start Time Stop Time Status Last Admin Dose Admin Sodium Chloride 1,000 ml @ 125 mls/hr Q8H STAT IV 01/23/17 09:36 01/23/17 13:26 DC 01/23/17 09:36 125 MLS/HR Sodium Chloride 500 ml @ 999 mls/hr Q31M STAT IV 01/23/17 09:36 01/23/17 10:06 DC 01/23/17 10:04 999 MLS/HR Ondansetron HCl (Zofran Inj) 4 mg NOW STAT IV 01/23/17 09:39 01/23/17 09:41 DC 01/23/17 10:02 4 MG Morphine Sulfate (MoRPHine SULFATE INJ) 2 mg NOW STAT IV 01/23/17 09:39 01/23/17 09:41 DC 01/23/17 10:03 2 MG Hydromorphone HCl (Dilaudid Inj) 0.5 mg Q20M PRN IV 01/23/17 10:45 01/23/17 13:27 DC 01/23/17 11:53 0.5 MG Sodium Chloride 500 ml @ 999 mls/hr Q31M STAT IV 01/23/17 11:04 01/23/17 11:34 DC 01/23/17 11:52 999 MLS/HR ECG Indication: abdominal pain Rate (beats per minute): 71 Rhythm: normal sinus Findings: LBBB, no acute ischemic change, no ectopy ED Course 0935: The patient was evaluated in room B2. A complete history and physical exam was performed. 0936: Ordered Sodium Chloride 500 ml @ 999 mls/hr IV, Sodium Chloride 1,000 ml @ 125 mls/hhr IV. 0939: Ordered Morphine Sulfate 2 mg IV, Zofran Inj 4 mg IV. 0958: Ordered Morphine Sulfate 2 mg. 1045: Ordered Dilaudid Inj 0.5 mg IV. 1056: Discussed the patient's case with Dr. Pitt of surgery. The patient will be evaluated for further treatment and disposition. 1103: Ordered Cefoxitin Sodium 2,000 mg IV. 1104: Ordered Sodium Chloride 500 ml @ 999 mls/hr IV. 1122: I spoke with Dr. Mancuso of [facility]. Upon reexamination, the patient was resting. I discussed the test results and treatment plan with her. The patient will be evaluated for further management. Medical Decision Triage Nursing notes reviewed. The patient's presentation and history were concerning for abdominal pain and nausea. Etiologies such as appendicitis, diverticulitis, obstruction, inflammatory bowel disease, renal colic, PUD, biliary pathology, pancreatitis, mesenteric ischemia, aortic pathology, infections, genitourinary, UTI, perforated viscus, as well as others were entertained. The patient was quite tender. She was given morphine, zofran and NSS. Labs and imaging ordered. Blood work was unremarkable. INR therapeutic. ECG did not reveal any acute ischemic change. The patient was found have a small bowel obstruction with incarcerated right inguinal hernia on CT imaging. The patient was reassessed. This is not reducible. Patient was educated. Surgery was consulted. Dr. Pitt requested a dose of IV Mefoxin preoperatively and will see the patient in the Emergency Room. Consultation was made with internal medicine and the case was discussed with Dr. Mancuso, she will see the patient for medical consultation. The patient was admitted for further treatment. Medication Reconcilliation Current Medication List: was personally reviewed by me Blood Pressure Screening Patient's blood pressure: Elevated blood pressure Blood pressure disposition: Elevated BP felt to be situational will be monitored by hospitalist Consults Time Called: 1055 Consulting Physician: Dr. Pitt - Surgery Returned Call: [phone] Discussed the patient's case. The patient will be evaluated for further treatment and disposition. Additional Consults: Time Called: 1102 Consulted Physician: Dr. Mancuso- [facility] Returned Call: [phone] Additional Comments: Discussed the patient's case. The patient will be evaluated for further treatment and disposition. Impression Primary Impression: Bowel obstruction Additional Impression: Incarcerated right inguinal hernia Scribe Attestation The scribe's documentation has been prepared under my direction and personally reviewed by me in its entirety. I confirm that the note above accurately reflects all work, treatment, procedures, and medical decision making performed by me. Departure Information Dispostion Being Evaluated By Hospitalist Referrals Bety Chaudhry M.D. (PCP) Patient Instructions My [facility] Problem Qualifiers
[2017-01-23 10:11] LABS: BASO % 0.1 %; BASO ABS # 0.01 K/uL (0-0.2); COMPLETE YES; EOS % 0.1 %; HEMATOCRIT 37.6 % (37-47); IG% 0.2 %; LYMPH % 12.4 %; LYMPH ABS # 1.11 K/uL (1.2-3.4); MEAN CELL VOLUME 91.7 fL (80-100); MEAN CORPUSCULAR HGB CONC 34.8 g/dl (32-36); MEAN PLATELET VOLUME 9.9 fL (7.4-10.4); MONO % 13.5 %; NEUT % 73.7 %; PLATELET COUNT 270 K/uL (130-400); WHITE BLOOD COUNT 8.92 K/uL (4.8-10.8)
[2017-01-23 10:15] LABS: URINE APPEARANCE CLOUDY (CLEAR); URINE BILIRUBIN NEG (NEG); URINE COLOR YELLOW; URINE EPITHELIAL CELL AUTO >30 /lpf (0-5); URINE NITRITE NEG (NEG); UROBILINOGEN NEG (NEG); ZZUR CULT IF INDIC CLEAN CATCH NO
[2017-01-23 10:20] LABS: MANUAL MICROSCOPIC REQUIRED? NO; REVIEW REQ? NO
[2017-01-23 10:42] LABS: BUN/CREATININE RATIO 28.4 (10-20); CREATININE 1.37 mg/dl (0.60-1.20)
[2017-01-23] MEDS ORDERED: HYDROmorphone INJ 0.5 MG/0.5 ML SYR IV PRN (10:45)
--- NOTE | 2017-01-23 10:53 | DIAGNOSTIC IMAGING REPORT ---
ADDENDUM Correction to the following report: The patient has had prior right lower abdominal wall surgery and the bowel obstruction is present within an incisional hernia rather than an inguinal hernia. Electronically signed by: Mikey Orozco M.D. 01/23/2017 11:47 AM Dictated Date/Time: 01/23/2017 11:46 AM ORIGINAL REPORT ABDOMEN AND PELVIS CT WITHOUT CONTRAST CT DOSE: 764.26 mGy.cm HISTORY: Acute upper abdominal pain with vomiting upper abd pain, vomiting TECHNIQUE: Multiaxial CT images of the abdomen and pelvis were performed without contrast. A dose lowering technique was utilized adhering to the principles of ALARA. COMPARISON STUDY: CT abdomen and pelvis 08/26/2016. FINDINGS: Bibasilar groundglass and linear subsegmental consolidative opacities suggest atelectasis/scarring. There is no pneumatosis or pneumoperitoneum identified. Imaged inferior cardiac chambers are mildly enlarged. Blurred calcifications of the left ventricle suggests prior infarction. Coronary arterial and aortic annular calcifications are noted. Prior cholecystectomy. The liver, and spleen are unremarkable. There is mild thickening of the adrenal glands bilaterally. There is severe diffuse pancreatic atrophy. Column of Jeff is noted on the left with possible duplicated collecting system. Low attenuating lesions of the kidneys bilaterally suggesting cysts, largest of which is within the superior pole left kidney, 5.0 x 4.7 cm. Multifocal areas of cortical thinning are noted bilaterally. Punctate calcification of the interpolar left kidney suggests nonobstructing calculus. Punctate nonobstructing calculi are also seen within the interpolar right kidney. Ureters and urinary bladder are unremarkable. Vascular calcifications involve the uterus. Indeterminate soft tissue and calcification is again seen within the left adnexum overall measuring up to 2.4 x 1.4 cm, unchanged. There is moderate atherosclerosis and tortuosity of the thoracic aorta. Diastases recti with postsurgical changes of the anterior abdominal wall. Postoperative changes are seen compatible with prior right hemicolectomy with ileocolic anastomosis. Mild colonic diverticulosis without diverticulitis. The distal ileum is collapsed. There are multiple dilated loops of small bowel with air-fluid levels within the mid and lower abdomen with small bowel loops within the right lower abdomen measuring up to 4.4 cm. Transition point appears to be present within angular bowel of the right lower quadrant adjacent to a right inguinal hernia containing obstructed loop of small bowel (see image 312 of series 3). There is mild associated reactive mesenteric edema. Soft tissues are unremarkable. The bones appear demineralized and appear intact. Multilevel degenerative changes of the spine. Compression deformities are seen within the T12 and L1 vertebral bodies with Schmorl's nodes at L3 and L4, unchanged from comparison. IMPRESSION: 1. Findings compatible with high-grade small bowel obstruction secondary to obstructing right inguinal hernia. No pneumatosis or pneumoperitoneum. 2. Postoperative changes compatible with prior right hemicolectomy with ileocolic anastomosis. 3. Prior cholecystectomy. 4. Additional findings as above. Electronically signed by: Mikey Orozco M.D. 01/23/2017 10:51 AM Dictated Date/Time: 01/23/2017 10:33 AM
[2017-01-23] MEDS ORDERED: CEFOXITIN 2000MG/60 ML D5W IV STA (11:03)
[2017-01-23] MEDS ORDERED: SODIUM CHLORIDE 0.9% 500ML 500 ML IV STA (11:04)
[2017-01-23 11:38] LABS: INR 2.4 (0.9-1.1); PARTIAL THROMBOPLASTIN RATIO 1.4; PROTHROMBIN TIME (PATIENT) 26.9 SECONDS (9.0-12.0)
[2017-01-23 11:42] LABS: POTASSIUM 3.5 mmol/L (3.5-5.1)
[2017-01-23] MEDS ORDERED: ONDANSETRON INJ 2 MG/ML 2 ML VIAL IV PRN (12:00)
[2017-01-23] MEDS ORDERED: ESCI1TAB9 PO (12:04)
[2017-01-23] MEDS ORDERED: CYAN1TAB2 PO (12:04)
[2017-01-23] MEDS ORDERED: CALC200S6 (12:04)
[2017-01-23] MEDS ORDERED: IBAN150T PO (12:04)
[2017-01-23] MEDS ORDERED: LORA-741 PO (12:04)
--- NOTE | 2017-01-23 12:16 | History and Physical ---
History & Physical Date & Time of Service: Jan 23, 2017 at 12:09 Chief Complaint: Pain And Nausea Primary Care Physician: Bety Chaudhry M.D. History of Present Illness Source: patient, clinic records, hospital records 81 yo F presents with 2 days of nausea with reports of persistent vomiting since yesterday. She also reports abdominal pain especially in the RLQ area. She went to her PCP office today and was referred to the ER for further workup. In the ER a CT a/p without contrast revealed an incarcerated hernia that was causing a SBO. She was evaluated by General Surgery who feels she would be best with a trial of supportive care with NGT first, prior to surgery. An NGT was placed and she was admitted to the floor. ROS otherwise reveal no chest pain or shortness of breath no or in the last few months, no headache, fevers, chills, UTI symptoms or blood in her vomitus. She also denies any diarrhea having a BM yesterday. She has a h/o atrial fibrillation and is on flecainide and coumadin for this and is well controlled. She is currently in sinus rhythm. She has a h/o LBBB which is present on EKG today. She is not ill- appearing. Family including her and daughter are at the bedside and verbalized understanding of the plan. Past Medical/Surgical History Medical Problems: (1) Atrial fibrillation Status: Chronic (2) Benign hypertension Status: Chronic (3) Colon cancer Status: Resolved (4) Gastroesophageal reflux disease Status: Chronic (5) Hernia, umbilical Status: Resolved (6) Incisional hernia Status: Resolved (7) Postoperative pain, acute, knee Status: Resolved (8) Status post right knee replacement Status: Chronic Surgical Problems: (1) History of colon resection Status: Resolved (2) S/P colon resection Status: Resolved (3) S/P knee replacement Status: Resolved Family History Heart disease Social History Smoking Status: Never Smoker Smokeless Tobacco Use: No Alcohol Use: none Drug Use: none Marital Status: Housing status: lives with significant other Occupational Status: retired Immunizations History of Influenza Vaccine: Yes Influenza Vaccine Date: Dec 14, 2016 History of Tetanus Vaccine?: Unknown Tetanus Immunization Date: Jun 16, 2011 History of Pneumococcal: Yes Pneumococcal Date: Nov 14, 2015 History of Hepatitis B Vaccine: No Multi-Drug Resistant Organisms History of MDRO: No Allergies Coded Allergies: No Known Allergies (Unverified , 01/23/17) Home Medications Scheduled Amlodipine (Norvasc), 5 MG PO DAILY Aspirin (Aspirin Ec), 81 MG PO DAILY Carvedilol (Coreg), 6.25 MG PO BID Cyanocobalamin (B-12), 100 MCG PO DAILY Flecainide (Tambocor), 50 MG PO BID Omeprazole (Omeprazole), 20 MG PO QAM Triamterene/Hctz (Maxzide 75MG/50MG), 1 TAB PO DAILY Warfarin Sod (Jantoven), 4 MG PO WK Warfarin Sod (Jantoven), 2 MG PO [id number] Scheduled PRN Lorazepam (Ativan), 0.25 MG PO TID PRN for Anxiety/Agitation Tramadol HCl (Tramadol HCl), 50 MG PO QID PRN for Pain Review of Systems At least ten systems were reviewed and negative except as indicated in HPI above. Physical Exam Vital Signs Date Time Temp Pulse Resp B/P (MAP) Pulse Ox O2 Delivery O2 Flow Rate FiO2 01/23/17 11:36 86 22 171/105 96 Room Air 01/23/17 10:32 68 01/23/17 09:13 37.0 78 17 140/81 95 Room Air General Appearance: WD/WN, + mild distress Head: normocephalic, atraumatic Eyes: normal inspection, PERRL, sclerae normal ENT: hearing grossly normal, pharynx normal Neck: supple, trachea midline Respiratory/Chest: lungs clear, normal breath sounds, no respiratory distress, no accessory muscle use Cardiovascular: regular rate, rhythm, no edema, no gallop, no JVD, no murmur, normal peripheral pulses Abdomen/GI: normal bowel sounds, soft, + tenderness (RLQ), + hernia, + pertinent finding (horizontal scar along RLQ-well healed) Back: normal inspection Extremities/Musculoskelatal: normal inspection, no pedal edema, normal range of motion 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, no motor/sensory deficits, alert, normal mood/affect, oriented x 3 Skin: normal color, warm/dry, no rash Diagnostics Laboratory Results 01/23/17 09:50 Red Blood Count 4.10, Mean Corpuscular Volume 91.7, Mean Corpuscular Hemoglobin 32.0, Mean Corpuscular Hemoglobin Concent 34.8, Mean Platelet Volume 9.9, Neutrophils (%) (Auto) 73.7, Lymphocytes (%) (Auto) 12.4, Monocytes (%) (Auto) 13.5, Eosinophils (%) (Auto) 0.1, Basophils (%) (Auto) 0.1, Neutrophils # (Auto ) 6.57, Lymphocytes # (Auto) 1.11, Monocytes # (Auto) 1.20, Eosinophils # (Auto ) 0.01, Basophils # (Auto) 0.01 01/23/17 09:50 01/23/17 11:08 Test 01/23/17 09:50 01/23/17 11:08 White Blood Count 8.92 K/uL (4.8-10.8) Red Blood Count 4.10 M/uL (4.2-5.4) Hemoglobin 13.1 g/dL (12.0-16.0) Hematocrit 37.6 % (37-47) Mean Corpuscular Volume 91.7 fL (80-100) Mean Corpuscular Hemoglobin 32.0 pg (25-34) Mean Corpuscular Hemoglobin Concent 34.8 g/dl (32-36) Platelet Count 270 K/uL (130-400) Mean Platelet Volume 9.9 fL (7.4-10.4) Neutrophils (%) (Auto) 73.7 % Lymphocytes (%) (Auto) 12.4 % Monocytes (%) (Auto) 13.5 % Eosinophils (%) (Auto) 0.1 % Basophils (%) (Auto) 0.1 % Neutrophils # (Auto) 6.57 K/uL (1.4-6.5) Lymphocytes # (Auto) 1.11 K/uL (1.2-3.4) Monocytes # (Auto) 1.20 K/uL (0.11-0.59) Eosinophils # (Auto) 0.01 K/uL (0-0.5) Basophils # (Auto) 0.01 K/uL (0-0.2) RDW Standard Deviation 52.1 fL (36.4-46.3) RDW Coefficient of Variation 15.5 % (11.5-14.5) Immature Granulocyte % (Auto) 0.2 % Immature Granulocyte # (Auto) 0.02 K/uL (0.00-0.02) Urine Color YELLOW Urine Appearance CLOUDY (CLEAR) Urine pH 8.0 (4.5-7.5) Urine Specific [place] 1.020 (1.000-1.030) Urine Protein NEG (NEG) Urine Glucose (UA) NEG (NEG) Urine Ketones NEG (NEG) Urine Occult Blood NEG (NEG) Urine Nitrite NEG (NEG) Urine Bilirubin NEG (NEG) Urine Urobilinogen NEG (NEG) Urine Leukocyte Esterase TRACE (NEG) Urine WBC (Auto) 1-5 /hpf (0-5) Urine RBC (Auto) 5-10 /hpf (0-4) Urine Hyaline Casts (Auto) 5-10 /lpf (0-5) Urine Epithelial Cells (Auto) >30 /lpf (0-5) Urine Bacteria (Auto) NEG (NEG) Anion Gap 8.0 mmol/L (3-11) Est Creatinine Clear Calc Drug Dose 31.4 ml/min Estimated GFR () 42.1 Estimated GFR (Non- 36.3 BUN/Creatinine Ratio 28.4 (10-20) Calcium Level 10.0 mg/dl (8.5-10.1) Total Bilirubin 0.6 mg/dl (0.2-1) Alanine Aminotransferase (ALT/SGPT) 16 U/L (12-78) Alkaline Phosphatase 50 U/L (45-117) Total Protein 7.4 gm/dl (6.4-8.2) Albumin 3.4 gm/dl (3.4-5.0) Lipase 48 U/L (73-393) Prothrombin Time 26.9 SECONDS (9.0-12.0) Prothromb Time International Ratio 2.4 (0.9-1.1) Activated Partial Thromboplast Time 37.1 SECONDS (21.0-31.0) Partial Thromboplastin Ratio 1.4 Direct Bilirubin 0.1 mg/dl (0-0.2) Aspartate Amino Transf (AST/SGOT) 15 U/L (15-37) Results Past 24 Hours Test 01/23/17 09:50 01/23/17 11:08 Range/Units White Blood Count 8.92 4.8-10.8 K/uL Red Blood Count 4.10 4.2-5.4 M/uL Hemoglobin 13.1 12.0-16.0 g/dL Hematocrit 37.6 37-47 % Mean Corpuscular Volume 91.7 80-100 fL Mean Corpuscular Hemoglobin 32.0 25-34 pg Mean Corpuscular Hemoglobin Concent 34.8 32-36 g/dl Platelet Count 270 130-400 K/uL Mean Platelet Volume 9.9 7.4-10.4 fL Neutrophils (%) (Auto) 73.7 % Lymphocytes (%) (Auto) 12.4 % Monocytes (%) (Auto) 13.5 % Eosinophils (%) (Auto) 0.1 % Basophils (%) (Auto) 0.1 % Neutrophils # (Auto) 6.57 1.4-6.5 K/uL Lymphocytes # (Auto) 1.11 1.2-3.4 K/uL Monocytes # (Auto) 1.20 0.11-0.59 K/uL Eosinophils # (Auto) 0.01 0-0.5 K/uL Basophils # (Auto) 0.01 0-0.2 K/uL RDW Standard Deviation 52.1 36.4-46.3 fL RDW Coefficient of Variation 15.5 11.5-14.5 % Immature Granulocyte % (Auto) 0.2 % Immature Granulocyte # (Auto) 0.02 0.00-0.02 K/uL Urine Color YELLOW Urine Appearance CLOUDY CLEAR Urine pH 8.0 4.5-7.5 Urine Specific [place] 1.020 1.000-1.030 Urine Protein NEG NEG Urine Glucose (UA) NEG NEG Urine Ketones NEG NEG Urine Occult Blood NEG NEG Urine Nitrite NEG NEG Urine Bilirubin NEG NEG Urine Urobilinogen NEG NEG Urine Leukocyte Esterase TRACE NEG Urine WBC (Auto) 1-5 0-5 /hpf Urine RBC (Auto) 5-10 0-4 /hpf Urine Hyaline Casts (Auto) 5-10 0-5 /lpf Urine Epithelial Cells (Auto) >30 0-5 /lpf Urine Bacteria (Auto) NEG NEG Sodium Level 138 136-145 mmol/L Potassium Level 3.5 3.5-5.1 mmol/L Chloride Level 101 98-107 mmol/L Carbon Dioxide Level 29 21-32 mmol/L Anion Gap 8.0 3-11 mmol/L Blood Urea Nitrogen 39 7-18 mg/dl Creatinine 1.37 0.60-1.20 mg/dl Est Creatinine Clear Calc Drug Dose 31.4 ml/min Estimated GFR () 42.1 Estimated GFR (Non- 36.3 BUN/Creatinine Ratio 28.4 10-20 Random Glucose 131 70-99 mg/dl Calcium Level 10.0 8.5-10.1 mg/dl Total Bilirubin 0.6 0.2-1 mg/dl Direct Bilirubin 0.1 0-0.2 mg/dl Aspartate Amino Transf (AST/SGOT) 15 15-37 U/L Alanine Aminotransferase (ALT/SGPT) 16 12-78 U/L Alkaline Phosphatase 50 45-117 U/L Total Protein 7.4 6.4-8.2 gm/dl Albumin 3.4 3.4-5.0 gm/dl Lipase 48 73-393 U/L Prothrombin Time 26.9 9.0-12.0 SECONDS Prothromb Time International Ratio 2.4 0.9-1.1 Activated Partial Thromboplast Time 37.1 21.0-31.0 SECONDS Partial Thromboplastin Ratio 1.4 EKG sinus rhythm, LBBB Impression Assessment and Plan 81 yo F with SBO 2/2 incarcerated incisional hernia. 1. SBO 2/2 incarcerated incisional hernia-somewhat reducible on exam per surgery. Trial of conservative management first with NGT to see if she improves. If worsens will fix in the OR this admission. Ultimate goal would be to improve the SBO and get her back to eating and then electively fix the hernia as an outpatient. NGT placed in ER. Cont morphine/zofran PRN. Cont IVF. She is at small risk for perioperative complications 2/2 her age, but is otherwise low risk for this intermediate risk surgery and optimized from a cardiac standpoint. She reports being very functional at baseline. 2. Atrial fibrillation-maintained in sinus rhythm with flecainide. Also on coumadin-both held. Rate control with Coreg-held. 3. HTN-uncontrolled 2/2 pain and unable to tolerate her BP meds. Maxzide and Norvasc were held. Gave pain medication in ER and will see how this improves things. Will manage with IV antihypertensives as needed. DVT proph-SCDs. Coumadin held in order to allow the INR to fall into normal range in preparation for surgery if needed. Would cover with Lovenox 40mg daily once INR<2. Full Code Dispo-med/surg [facility] Level [facility] Care Med/Surg Resuscitation Status FULL RESUSCITATION VTE Prophylaxis VTE Risk Assessment Done? Y/N: Yes Risk Level: Moderate Given or contraindicated: SCD's
--- NOTE | 2017-01-23 12:19 | Pre-Operative Consultation ---
History General Date of Service: Jan 23, 2017. HPI HPI: The patient is a 81 year old female being seen for SBO secondary to chronically incarcerated SB loop in RLQ incisional hernia from mulyiple previous hernia repairs. She came to the Emergency Room with complaints of nausea beginning 2 days ago. The patient reports having abdominal pain subsequent vomiting yesterday morning. She states that she has thrown up 5 times, including this morning. The patient rates her abdominal pain at a 4/10. She also reports having chills. She denies fevers, diaphoresis, visual changes, neck pain, chest pain, breathing difficulties, back pain, melena, hematochezia, urinary symptoms , numbness, weakness, rash, or other complaints. The patient reports a history of atrial fibrillation, colon resection, and 6 hernias attempted. She has a known incisional hernia which is chronically out. She states that she is on Coumadin. . Procedure Urgency: Acute Risk Assessment Daily beta asmita use?: Yes Beta Asmita Details Indication Beta Asmita use: hypertension Problem List Medical Problems: (1) Bowel obstruction Status: Acute (2) Cervicalgia Status: Acute (3) Lumbar compression fracture Status: Acute (4) Supratherapeutic INR Status: Acute Medical & Surgical History Past Medical History: atrial fibrillation, cancer - colon, GERD, hypertension, other (chronically incarcerated incisional hernia) Past Surgical History: colectomy, hernia repair (X6 with all previous mesh removed) Family History Family History: heart disease Social History Hx Tobacco Use In Past Year?: No Smoking Status: Never Smoker Alcohol: none Drug Use: none Marital status: Housing status: lives with family Occupation status: retired Immunizations Have You Had Influenza Vaccine: Yes Date Of Influenza Vaccine: Feb 04, 2009 Have You Had Tetanus Vaccine: Unknown Date Of Tetanus Immunization: Feb 22, 1994 History of Pneumococcal: Yes Date of Pneumococcal Vaccine: Sep 02, 1996 History Hepatitis B Vaccine: Unknown Allergies Allergies: Coded Allergies: No Known Allergies (Unverified , 01/23/17) Medications Current Inpatient Medications Current Inpatient Medications Medications (Trade) Dose Ordered Sig/[place] Route Start Time Stop Time Status Last Admin Dose Admin Sodium Chloride 1,000 ml @ 125 mls/hr Q8H STAT IV 01/23/17 09:36 01/23/17 17:35 01/23/17 09:36 125 MLS/HR Hydromorphone HCl (Dilaudid Inj) 0.5 mg Q20M PRN IV 01/23/17 10:45 02/06/17 10:44 01/23/17 11:53 0.5 MG Cefoxitin Sodium 2000 mg/Syringe 21 ml @ 4.2 mls/min 1230 IV 01/23/17 12:30 01/23/17 12:34 Ondansetron HCl (Zofran Inj) 4 mg Q6H PRN IV 01/23/17 12:00 02/22/17 11:59 UNV Review of Systems Review of Systems Constitutional: chills, denies diaphoresis, denies fever, denies weakness Eyes: reports: no symptoms ENT: reports: no symptoms reported Cardiovascular: denies: chest pain, chest tightness, chest pressure, palpitations Respiratory: reports: cough, denies: short of breath, stridor, wheezing, sputum production Gastrointestinal: abdominal pain, denies constipation, denies diarrhea, nausea , vomiting Genitourinary - Female: reports: no symptoms Musculoskeletal: denies back pain, denies joint pain, denies joint swelling, denies muscle stiffness, denies neck pain Integumentary: denies change in hair/nails, denies dryness, denies lumps, denies rash Neurologic: reports: no symptoms Psychiatric: reports: no symptoms Endocrine: no symptoms Hematologic / Lymphatic: no symptoms Allergic / Immunologic: no symptoms Physical Exam Physical Exam General Appearance: + WD/WN, No distress Neck: No tracheal deviation, No lymphadenophy, No stiffness, No tenderness Respiratory: No rales, No decreased breath sounds, No rhonchi, No respiratory distress, No stridor, No wheezing Cardiovascular: No tachycardia, No gallop/S3, No diastolic murmur, No gallop/S4 , No bradycardia, No systolic murmur Abdomen: + tenderness, + hernia (tender but partially reduces then pops back into defect), No abnormal bowel sounds, No distension Extremities: No deformity, No swelling, No calf tenderness, No inflammation Neurologic/Psychiatric: No motor deficit/weakness, No disorientation, No sensory deficit Skin Characteristics: No abnormal color, No diaphoresis, No pallor, No jaundice , No rash Lymphatic: No abnormal adenopathy Diagnostics Labs Labs Results Past 24 Hours Test 01/23/17 09:50 01/23/17 11:08 Range/Units White Blood Count 8.92 4.8-10.8 K/uL Red Blood Count 4.10 4.2-5.4 M/uL Hemoglobin 13.1 12.0-16.0 g/dL Hematocrit 37.6 37-47 % Mean Corpuscular Volume 91.7 80-100 fL Mean Corpuscular Hemoglobin 32.0 25-34 pg Mean Corpuscular Hemoglobin Concent 34.8 32-36 g/dl Platelet Count 270 130-400 K/uL Mean Platelet Volume 9.9 7.4-10.4 fL Neutrophils (%) (Auto) 73.7 % Lymphocytes (%) (Auto) 12.4 % Monocytes (%) (Auto) 13.5 % Eosinophils (%) (Auto) 0.1 % Basophils (%) (Auto) 0.1 % Neutrophils # (Auto) 6.57 1.4-6.5 K/uL Lymphocytes # (Auto) 1.11 1.2-3.4 K/uL Monocytes # (Auto) 1.20 0.11-0.59 K/uL Eosinophils # (Auto) 0.01 0-0.5 K/uL Basophils # (Auto) 0.01 0-0.2 K/uL RDW Standard Deviation 52.1 36.4-46.3 fL RDW Coefficient of Variation 15.5 11.5-14.5 % Immature Granulocyte % (Auto) 0.2 % Immature Granulocyte # (Auto) 0.02 0.00-0.02 K/uL Urine Color YELLOW Urine Appearance CLOUDY CLEAR Urine pH 8.0 4.5-7.5 Urine Specific [place] 1.020 1.000-1.030 Urine Protein NEG NEG Urine Glucose (UA) NEG NEG Urine Ketones NEG NEG Urine Occult Blood NEG NEG Urine Nitrite NEG NEG Urine Bilirubin NEG NEG Urine Urobilinogen NEG NEG Urine Leukocyte Esterase TRACE NEG Urine WBC (Auto) 1-5 0-5 /hpf Urine RBC (Auto) 5-10 0-4 /hpf Urine Hyaline Casts (Auto) 5-10 0-5 /lpf Urine Epithelial Cells (Auto) >30 0-5 /lpf Urine Bacteria (Auto) NEG NEG Sodium Level 138 136-145 mmol/L Potassium Level 3.5 3.5-5.1 mmol/L Chloride Level 101 98-107 mmol/L Carbon Dioxide Level 29 21-32 mmol/L Anion Gap 8.0 3-11 mmol/L Blood Urea Nitrogen 39 7-18 mg/dl Creatinine 1.37 0.60-1.20 mg/dl Est Creatinine Clear Calc Drug Dose 31.4 ml/min Estimated GFR () 42.1 Estimated GFR (Non- 36.3 BUN/Creatinine Ratio 28.4 10-20 Random Glucose 131 70-99 mg/dl Calcium Level 10.0 8.5-10.1 mg/dl Total Bilirubin 0.6 0.2-1 mg/dl Direct Bilirubin 0.1 0-0.2 mg/dl Aspartate Amino Transf (AST/SGOT) 15 15-37 U/L Alanine Aminotransferase (ALT/SGPT) 16 12-78 U/L Alkaline Phosphatase 50 45-117 U/L Total Protein 7.4 6.4-8.2 gm/dl Albumin 3.4 3.4-5.0 gm/dl Lipase 48 73-393 U/L Prothrombin Time 26.9 9.0-12.0 SECONDS Prothromb Time International Ratio 2.4 0.9-1.1 Activated Partial Thromboplast Time 37.1 21.0-31.0 SECONDS Partial Thromboplastin Ratio 1.4 Diagnostic Radiology Diagnostic Radiology ADDENDUM Correction to the following report: The patient has had prior right lower abdominal wall surgery and the bowel obstruction is present within an incisional hernia rather than an inguinal hernia. Electronically signed by: Mikey Orozco M.D. 01/23/2017 11:47 AM Dictated Date/Time: 01/23/2017 11:46 AM ORIGINAL REPORT ABDOMEN AND PELVIS CT WITHOUT CONTRAST CT DOSE: 764.26 mGy.cm HISTORY: Acute upper abdominal pain with vomiting upper abd pain, vomiting TECHNIQUE: Multiaxial CT images of the abdomen and pelvis were performed without contrast. A dose lowering technique was utilized adhering to the principles of ALARA. COMPARISON STUDY: CT abdomen and pelvis 08/26/2016. FINDINGS: Bibasilar groundglass and linear subsegmental consolidative opacities suggest atelectasis/scarring. There is no pneumatosis or pneumoperitoneum identified. Imaged inferior cardiac chambers are mildly enlarged. Blurred calcifications of the left ventricle suggests prior infarction. Coronary arterial and aortic annular calcifications are noted. Prior cholecystectomy. The liver, and spleen are unremarkable. There is mild thickening of the adrenal glands bilaterally. There is severe diffuse pancreatic atrophy. Column of Jeff is noted on the left with possible duplicated collecting system. Low attenuating lesions of the kidneys bilaterally suggesting cysts, largest of which is within the superior pole left kidney, 5.0 x 4.7 cm. Multifocal areas of cortical thinning are noted bilaterally. Punctate calcification of the interpolar left kidney suggests nonobstructing calculus. Punctate nonobstructing calculi are also seen within the interpolar right kidney. Ureters and urinary bladder are unremarkable. Vascular calcifications involve the uterus. Indeterminate soft tissue and calcification is again seen within the left adnexum overall measuring up to 2.4 x 1.4 cm, unchanged. There is moderate atherosclerosis and tortuosity of the thoracic aorta. Diastases recti with postsurgical changes of the anterior abdominal wall. Postoperative changes are seen compatible with prior right hemicolectomy with ileocolic anastomosis. Mild colonic diverticulosis without diverticulitis. The distal ileum is collapsed. There are multiple dilated loops of small bowel with air-fluid levels within the mid and lower abdomen with small bowel loops within the right lower abdomen measuring up to 4.4 cm. Transition point appears to be present within angular bowel of the right lower quadrant adjacent to a right inguinal hernia containing obstructed loop of small bowel (see image 312 of series 3). There is mild associated reactive mesenteric edema. Soft tissues are unremarkable. The bones appear demineralized and appear intact. Multilevel degenerative changes of the spine. Compression deformities are seen within the T12 and L1 vertebral bodies with Schmorl's nodes at L3 and L4, unchanged from comparison. IMPRESSION: 1. Findings compatible with high-grade small bowel obstruction secondary to obstructing right inguinal hernia. No pneumatosis or pneumoperitoneum. 2. Postoperative changes compatible with prior right hemicolectomy with ileocolic anastomosis. 3. Prior cholecystectomy. 4. Additional findings as above. Impression Assessment and Plan Assessment and Plan SBO from chronically incarcerated SB loop likely with change in orientation -ngt -IVF -IV abx -no signs of ischemia -will stop coumadin -WBC normal and not septic
[2017-01-23] MEDS ORDERED: CEFOXITIN IV 2,000 MG in SYRINGE 11 ML IV SCH (12:30)
[2017-01-23 13:59] VITALS: BP 132/64; PULSE 73; TEMP 36.6; O2SAT 93
--- NOTE | 2017-01-23 14:06 | DIAGNOSTIC IMAGING REPORT ---
KUB HISTORY: Acute upper abdominal pain with vomiting. Status post placement of an enteric tube COMPARISON: Acute abdominal series radiographs 08/19/2014, CT 01/23/2017 FINDINGS: An enteric tube has been placed with distal tip terminating within the central upper abdomen, likely within the region of the proximal gastric lumen. No significant small bowel dilation identified. Surgical suture material is seen within the right midabdomen. Cholecystectomy clips noted. Vascular calcifications are seen. Multilevel degenerative changes of the spine, pelvis and hips. IMPRESSION: 1. Status post placement of an enteric tube with distal tip terminating in the upper central abdomen, likely within the region of the mid gastric lumen. 2. No significant small bowel dilation identified. Electronically signed by: Mikey Orozco M.D. 01/23/2017 2:05 PM Dictated Date/Time: 01/23/2017 2:02 PM
[2017-01-23 14:17] VITALS: BP 132/64; PULSE 73; TEMP 36.6; Ht 157.5 cm; Wt 74.8 kg
[2017-01-23] MEDS: D5NSS + 20MEQ KCL 1,000 ML IV SCH ×2 (14:39→21:59)
[2017-01-23 15:47] VITALS: BP 158/76; PULSE 67; TEMP 36.7; O2SAT 94
[2017-01-23] MEDS: MoRPHine SULFATE 4 MG/ML 1 ML CARP\\VIAL IV PRN ×3 (18:32→23:41)
[2017-01-23] MEDS: CHLORASEPTIC 1.4% SOLN 180 ML BTL MT PRN ×3 (19:34→23:35)
[2017-01-23 23:20] VITALS: BP 124/65; PULSE 71; TEMP 36.9; O2SAT 93
[2017-01-24] MEDS: MoRPHine SULFATE 4 MG/ML 1 ML CARP\\VIAL IV PRN ×6 (02:28→23:28)
[2017-01-24 03:10] VITALS: BP 126/62; PULSE 70; TEMP 36.9; O2SAT 93
[2017-01-24] MEDS: D5NSS + 20MEQ KCL 1,000 ML IV SCH ×3 (05:43→21:41)
--- NOTE | 2017-01-24 06:55 | Surgery Progress Note ---
Surgery Progress Note Date of Service Jan 24, 2017. Subjective Post OP Day: HD 2 + feeling well (pain resolved), + ambulating, + flatus, + diet (npo), No nausea , No vomiting Objective Vital Signs: Date Time Temp Pulse Resp B/P (MAP) Pulse Ox O2 Delivery O2 Flow Rate FiO2 01/24/17 03:10 36.9 70 18 126/62 (83) 93 Room Air 01/24/17 00:54 Room Air 01/23/17 23:20 36.9 71 14 124/65 (84) 93 Room Air 01/23/17 15:47 36.7 67 16 158/76 (103) 94 Room Air 01/23/17 15:25 Room Air 01/23/17 14:17 36.6 73 17 132/64 Room Air 01/23/17 13:59 36.6 73 17 132/64 (86) 93 Room Air 01/23/17 12:42 75 18 147/73 97 Room Air 01/23/17 12:18 78 01/23/17 11:36 86 22 171/105 96 Room Air 01/23/17 10:32 68 01/23/17 09:13 37.0 78 17 140/81 95 Room Air Physical Exam: nasogastric drainage (bilious) General Appearance: WD/WN, no apparent distress Head: normocephalic, atraumatic Neck: supple, trachea midline Respiratory/Chest: chest non-tender, lungs clear Cardiovascular: regular rate, rhythm, no edema, no murmur Abdomen: normal bowel sounds, non tender, non distended, soft, + pertinent finding (hernia with incarcerated SB non-tender) Extremities: non-tender, no pedal edema Laboratory Results: Results Past 24 Hours Test 01/23/17 09:50 01/23/17 11:08 01/24/17 06:44 Range/Units White Blood Count 8.92 4.8-10.8 K/uL Red Blood Count 4.10 4.2-5.4 M/uL Hemoglobin 13.1 12.0-16.0 g/dL Hematocrit 37.6 37-47 % Mean Corpuscular Volume 91.7 80-100 fL Mean Corpuscular Hemoglobin 32.0 25-34 pg Mean Corpuscular Hemoglobin Concent 34.8 32-36 g/dl Platelet Count 270 130-400 K/uL Mean Platelet Volume 9.9 7.4-10.4 fL Neutrophils (%) (Auto) 73.7 % Lymphocytes (%) (Auto) 12.4 % Monocytes (%) (Auto) 13.5 % Eosinophils (%) (Auto) 0.1 % Basophils (%) (Auto) 0.1 % Neutrophils # (Auto) 6.57 1.4-6.5 K/uL Lymphocytes # (Auto) 1.11 1.2-3.4 K/uL Monocytes # (Auto) 1.20 0.11-0.59 K/uL Eosinophils # (Auto) 0.01 0-0.5 K/uL Basophils # (Auto) 0.01 0-0.2 K/uL RDW Standard Deviation 52.1 36.4-46.3 fL RDW Coefficient of Variation 15.5 11.5-14.5 % Immature Granulocyte % (Auto) 0.2 % Immature Granulocyte # (Auto) 0.02 0.00-0.02 K/uL Urine Color YELLOW Urine Appearance CLOUDY CLEAR Urine pH 8.0 4.5-7.5 Urine Specific [place] 1.020 1.000-1.030 Urine Protein NEG NEG Urine Glucose (UA) NEG NEG Urine Ketones NEG NEG Urine Occult Blood NEG NEG Urine Nitrite NEG NEG Urine Bilirubin NEG NEG Urine Urobilinogen NEG NEG Urine Leukocyte Esterase TRACE NEG Urine WBC (Auto) 1-5 0-5 /hpf Urine RBC (Auto) 5-10 0-4 /hpf Urine Hyaline Casts (Auto) 5-10 0-5 /lpf Urine Epithelial Cells (Auto) >30 0-5 /lpf Urine Bacteria (Auto) NEG NEG Sodium Level 138 136-145 mmol/L Potassium Level 3.5 3.5-5.1 mmol/L Chloride Level 101 98-107 mmol/L Carbon Dioxide Level 29 21-32 mmol/L Anion Gap 8.0 3-11 mmol/L Blood Urea Nitrogen 39 7-18 mg/dl Creatinine 1.37 0.60-1.20 mg/dl Est Creatinine Clear Calc Drug Dose 31.4 ml/min Estimated GFR () 42.1 Estimated GFR (Non- 36.3 BUN/Creatinine Ratio 28.4 10-20 Random Glucose 131 70-99 mg/dl Calcium Level 10.0 8.5-10.1 mg/dl Total Bilirubin 0.6 0.2-1 mg/dl Direct Bilirubin 0.1 0-0.2 mg/dl Aspartate Amino Transf (AST/SGOT) 15 15-37 U/L Alanine Aminotransferase (ALT/SGPT) 16 12-78 U/L Alkaline Phosphatase 50 45-117 U/L Total Protein 7.4 6.4-8.2 gm/dl Albumin 3.4 3.4-5.0 gm/dl Lipase 48 73-393 U/L Prothrombin Time 26.9 9.0-12.0 SECONDS Prothromb Time International Ratio 2.4 0.9-1.1 Activated Partial Thromboplast Time 37.1 21.0-31.0 SECONDS Partial Thromboplastin Ratio 1.4 Assessment & Plan chronic incarcerated right incisional hernia -con't ngt tilll Wednesday -begin -options either to fix hernia this hospitalization or electively
[2017-01-24 07:01] VITALS: BP 135/75; PULSE 70; TEMP 36.6; O2SAT 93
[2017-01-24 07:15] LABS: HEMATOCRIT 34.8 % (37-47); MEAN CELL VOLUME 94.8 fL (80-100); MEAN CORPUSCULAR HEMOGLOBIN 30.5 pg (25-34); MEAN CORPUSCULAR HGB CONC 32.2 g/dl (32-36); MEAN PLATELET VOLUME 9.3 fL (7.4-10.4); PLATELET COUNT 223 K/uL (130-400); RED BLOOD COUNT 3.67 M/uL (4.2-5.4); WHITE BLOOD COUNT 5.56 K/uL (4.8-10.8)
[2017-01-24 07:22] LABS: INR 2.4 (0.9-1.1); PROTHROMBIN TIME (PATIENT) 26.4 SECONDS (9.0-12.0)
[2017-01-24 08:03] LABS: BUN/CREATININE RATIO 27.4 (10-20); CALCIUM 8.4 mg/dl (8.5-10.1); CREATININE 0.99 mg/dl (0.60-1.20); MAGNESIUM 2.5 mg/dl (1.8-2.4); POTASSIUM 3.9 mmol/L (3.5-5.1)
[2017-01-24 15:40] VITALS: BP 133/72; PULSE 66; TEMP 36.3; O2SAT 93
--- NOTE | 2017-01-24 15:48 | Progress Note ---
Internal Med Progress Note Date of Service: Jan 24, 2017. Provider Documentation: SUBJECTIVE: Patient has NG tube that is suctioning. Patient denies acute pain. Resting comfortably in bed. Denies shortness of breath General Appearance: mo distress Head: normocephalic, atraumatic Eyes: normal inspection, sclerae normal ENT: hearing grossly normal, NG tube Neck: supple, trachea midline Respiratory/Chest: lungs clear, normal breath sounds, no respiratory distress, no accessory muscle use Cardiovascular: regular rate, rhythm, no edema, no gallop, no JVD, no murmur, normal peripheral pulses Abdomen/GI: normal bowel sounds, soft Extremities/Musculoskelatal: normal inspection, no pedal edema, normal range of motion Neurologic/Psych: alert, normal mood/affect, oriented x 3 Skin: normal color, warm/dry, no rash ASSESSMENT & PLAN: 81 yo F with SBO 2/2 incarcerated incisional hernia. ABDOMEN AND PELVIS CT WITHOUT CONTRAST 1. Findings compatible with high-grade small bowel obstruction secondary to obstructing right inguinal hernia. No pneumatosis or pneumoperitoneum. 2. Postoperative changes compatible with prior right hemicolectomy with ileocolic anastomosis. 3. Prior cholecystectomy. SBO 2/2 incarcerated incisional hernia-somewhat reducible on exam per surgery. Followed by General Surgery. NG tube placed in ER. Will Continue NG tube today on 01/24/17 and to 01/25/17. Cont morphine/zofran PRN. Cont IVF. Phenol spray for oral comfort with NG tube Atrial fibrillation-maintained in sinus rhythm with flecainide. Also on coumadin-both held. INR is still 2.4 on 01/24/17. Rate control with Coreg-held. Heart Rate stable HTN-uncontrolled 2/2 pain and unable to tolerate her BP meds. Maxzide and Norvasc held. Blood pressure controlled DVT proph-SCDs. Coumadin held in order to allow the INR to fall into normal range in preparation for surgery if needed Full code Vital Signs: Date Time Temp Pulse Resp B/P (MAP) Pulse Ox O2 Delivery O2 Flow Rate FiO2 01/24/17 15:40 36.3 66 16 133/72 (92) 93 Room Air 01/24/17 15:20 Room Air 01/24/17 07:34 Room Air 01/24/17 07:01 36.6 70 18 135/75 (95) 93 Room Air 01/24/17 03:10 36.9 70 18 126/62 (83) 93 Room Air 01/24/17 00:54 Room Air 01/23/17 23:20 36.9 71 14 124/65 (84) 93 Room Air Lab Results: Results Past 24 Hours Test 01/24/17 06:44 Range/Units White Blood Count 5.56 4.8-10.8 K/uL Red Blood Count 3.67 4.2-5.4 M/uL Hemoglobin 11.2 12.0-16.0 g/dL Hematocrit 34.8 37-47 % Mean Corpuscular Volume 94.8 80-100 fL Mean Corpuscular Hemoglobin 30.5 25-34 pg Mean Corpuscular Hemoglobin Concent 32.2 32-36 g/dl RDW Standard Deviation 56.1 36.4-46.3 fL RDW Coefficient of Variation 16.1 11.5-14.5 % Platelet Count 223 130-400 K/uL Mean Platelet Volume 9.3 7.4-10.4 fL Prothrombin Time 26.4 9.0-12.0 SECONDS Prothromb Time International Ratio 2.4 0.9-1.1 Sodium Level 143 136-145 mmol/L Potassium Level 3.9 3.5-5.1 mmol/L Chloride Level 112 98-107 mmol/L Carbon Dioxide Level 26 21-32 mmol/L Anion Gap 5.0 3-11 mmol/L Blood Urea Nitrogen 27 7-18 mg/dl Creatinine 0.99 0.60-1.20 mg/dl Est Creatinine Clear Calc Drug Dose 42.9 ml/min Estimated GFR () 62.4 Estimated GFR (Non- 53.8 BUN/Creatinine Ratio 27.4 10-20 Random Glucose 113 70-99 mg/dl Calcium Level 8.4 8.5-10.1 mg/dl Magnesium Level 2.5 1.8-2.4 mg/dl
[2017-01-24 22:52] VITALS: BP 146/75; PULSE 82; TEMP 36.6; O2SAT 95
[2017-01-25] VITALS (11 sets, daily range): BP systolic 153–192; BP diastolic 64–93; PULSE 80–100; TEMP 36.7–37.1; O2SAT 95–96
[2017-01-25] MEDS: MoRPHine SULFATE 4 MG/ML 1 ML CARP\\VIAL IV PRN ×3 (01:46→11:39)
[2017-01-25] MEDS: D5NSS + 20MEQ KCL 1,000 ML IV SCH ×2 (05:03→22:27)
[2017-01-25 07:11] LABS: BASO % 0.2 %; BASO ABS # 0.01 K/uL (0-0.2); COMPLETE YES; EOS % 1.7 %; IG% 0.2 %; LYMPH % 31.6 %; LYMPH ABS # 1.69 K/uL (1.2-3.4); MEAN CELL VOLUME 96.6 fL (80-100); MEAN CORPUSCULAR HEMOGLOBIN 29.8 pg (25-34); MEAN CORPUSCULAR HGB CONC 30.8 g/dl (32-36); MEAN PLATELET VOLUME 9.9 fL (7.4-10.4); MONO % 17.2 %; NEUT % 49.1 %; PLATELET COUNT 206 K/uL (130-400); RED BLOOD COUNT 3.83 M/uL (4.2-5.4); WHITE BLOOD COUNT 5.35 K/uL (4.8-10.8)
[2017-01-25 07:16] LABS: INR 2.1 (0.9-1.1); PROTHROMBIN TIME (PATIENT) 23.4 SECONDS (9.0-12.0)
[2017-01-25 07:54] LABS: ALB/GLOB RATIO 0.7 (0.9-2); BUN/CREATININE RATIO 18.7 (10-20); CALCIUM 8.5 mg/dl (8.5-10.1); CREATININE 0.82 mg/dl (0.60-1.20)
[2017-01-25] MEDS ORDERED: AMLODIPINE BESYLATE 5 MG TAB PO ONE (09:30)
--- NOTE | 2017-01-25 10:10 | DIAGNOSTIC IMAGING REPORT ---
PA CHEST RADIOGRAPH AND UPRIGHT AND SUPINE AP RADIOGRAPHS OF THE ABDOMEN CLINICAL HISTORY: Small bowel obstruction. COMPARISON STUDY: Chest radiograph and abdominal series August 19, [address] of the abdomen and pelvis and KUB January 23, 2017. FINDINGS: Lung volumes are normal. No pneumothorax or pleural effusion is present. Linear bibasilar opacities suggest atelectasis. There is no evidence of pulmonary edema. Cardiomediastinal silhouette is normal. There are cholecystectomy clips. Tip of nasogastric tube projects over the gastric antrum. Bowel anastomosis is noted. There is no free air. Moderate dilatation of several sided small bowel loops is noted, measuring up to 4.9 cm in caliber. This has increased since exam of January 23, 2017. IMPRESSION: 1. Interval development of moderate small bowel dilatation since KUB of January 23, 2017 which suggests a small bowel obstruction. 2. No free air. 3. Nasogastric tube in place. Electronically signed by: Mitchell Obrien M.D. 01/25/2017 10:09 AM Dictated Date/Time: 01/25/2017 10:05 AM
[2017-01-25] MEDS: HydrALAZINE HCL 20 MG/ML VIAL IV. PRN (10:37)
--- NOTE | 2017-01-25 11:41 | Surgery Progress Note ---
Surgery Progress Note Date of Service Jan 25, 2017. Subjective Post OP Day: HD # 2 tearful, upset that the abdominal xray showed dilated bowel No abdominal pain just tenderness No nausea or vomiting NGT causing irritation and pain Objective Vital Signs: Date Time Temp Pulse Resp B/P (MAP) Pulse Ox O2 Delivery O2 Flow Rate FiO2 01/25/17 10:34 85 170/80 (110) 01/25/17 09:17 85 169/69 (102) 01/25/17 08:18 96 Room Air 01/25/17 08:10 36.8 80 16 173/83 (113) 96 Room Air 01/25/17 07:30 Room Air 01/24/17 23:34 Room Air 01/24/17 22:52 36.6 82 18 146/75 (98) 95 Room Air 01/24/17 15:40 36.3 66 16 133/72 (92) 93 Room Air 01/24/17 15:20 Room Air General Appearance: WD/WN, no apparent distress Head: normocephalic, atraumatic Neck: trachea midline Respiratory/Chest: no respiratory distress, no accessory muscle use Abdomen: non tender, non distended, soft, no organomegaly, no pulsatile mass, + tenderness (RLQ near previous scar ), + pertinent finding (unable to fully feel hernia on examination) Laboratory Results: Results Past 24 Hours Test 01/25/17 06:39 Range/Units White Blood Count 5.35 4.8-10.8 K/uL Red Blood Count 3.83 4.2-5.4 M/uL Hemoglobin 11.4 12.0-16.0 g/dL Hematocrit 37.0 37-47 % Mean Corpuscular Volume 96.6 80-100 fL Mean Corpuscular Hemoglobin 29.8 25-34 pg Mean Corpuscular Hemoglobin Concent 30.8 32-36 g/dl Platelet Count 206 130-400 K/uL Mean Platelet Volume 9.9 7.4-10.4 fL Neutrophils (%) (Auto) 49.1 % Lymphocytes (%) (Auto) 31.6 % Monocytes (%) (Auto) 17.2 % Eosinophils (%) (Auto) 1.7 % Basophils (%) (Auto) 0.2 % Neutrophils # (Auto) 2.63 1.4-6.5 K/uL Lymphocytes # (Auto) 1.69 1.2-3.4 K/uL Monocytes # (Auto) 0.92 0.11-0.59 K/uL Eosinophils # (Auto) 0.09 0-0.5 K/uL Basophils # (Auto) 0.01 0-0.2 K/uL RDW Standard Deviation 56.1 36.4-46.3 fL RDW Coefficient of Variation 16.0 11.5-14.5 % Immature Granulocyte % (Auto) 0.2 % Immature Granulocyte # (Auto) 0.01 0.00-0.02 K/uL Prothrombin Time 23.4 9.0-12.0 SECONDS Prothromb Time International Ratio 2.1 0.9-1.1 Sodium Level 146 136-145 mmol/L Potassium Level 4.0 3.5-5.1 mmol/L Chloride Level 115 98-107 mmol/L Carbon Dioxide Level 26 21-32 mmol/L Anion Gap 5.0 3-11 mmol/L Blood Urea Nitrogen 15 7-18 mg/dl Creatinine 0.82 0.60-1.20 mg/dl Est Creatinine Clear Calc Drug Dose 51.8 ml/min Estimated GFR () 78.3 Estimated GFR (Non- 67.6 BUN/Creatinine Ratio 18.7 10-20 Random Glucose 111 70-99 mg/dl Calcium Level 8.5 8.5-10.1 mg/dl Total Bilirubin 0.3 0.2-1 mg/dl Aspartate Amino Transf (AST/SGOT) 26 15-37 U/L Alanine Aminotransferase (ALT/SGPT) 43 12-78 U/L Alkaline Phosphatase 51 45-117 U/L Total Protein 6.1 6.4-8.2 gm/dl Albumin 2.6 3.4-5.0 gm/dl Globulin 3.5 2.5-4.0 gm/dl Albumin/Globulin Ratio 0.7 0.9-2 Diagnostic Interpretation: PA CHEST RADIOGRAPH AND UPRIGHT AND SUPINE AP RADIOGRAPHS OF THE ABDOMEN CLINICAL HISTORY: Small bowel obstruction. COMPARISON STUDY: Chest radiograph and abdominal series August 19, [address] of the abdomen and pelvis and KUB January 23, 2017. FINDINGS: Lung volumes are normal. No pneumothorax or pleural effusion is present. Linear bibasilar opacities suggest atelectasis. There is no evidence of pulmonary edema. Cardiomediastinal silhouette is normal. There are cholecystectomy clips. Tip of nasogastric tube projects over the gastric antrum. Bowel anastomosis is noted. There is no free air. Moderate dilatation of several sided small bowel loops is noted, measuring up to 4.9 cm in caliber. This has increased since exam of January 23, 2017. IMPRESSION: 1. Interval development of moderate small bowel dilatation since KUB of January 23, 2017 which suggests a small bowel obstruction. 2. No free air. 3. Nasogastric tube in place. Assessment & Plan Incarcerated Incisional hernia with small bowel causing SBO -vitals stable - no abdominal pain - no leukocytosis - KUB this morning showing dilated small bowel concern for small bowel obstruction - 260 cc of NGT output bilious last shift Plan: Discussed with patient the findings of KUB this morning which is now showing small bowel distention concerning for obstruction. Recommended hernia repair today to prevent further SBO vs ischemic bowel. Patient's daughter present and understood indications Patient informed of procedure and risks including bleeding, infection, recurrence of hernia, injury to surrounding organs/tissues including bowel, myocardial infarction, stroke, blood clots and even by Dr. Allan and informed consent obtained Decrease IV fluids to 100 mls/hr Continue conservative management Dr. Allan has seen and examined patient, agrees with above
[2017-01-25] MEDS ORDERED: FENTANYL CITRATE INJ 50 MCG/1 ML 2 ML VIAL ONE ×3 (11:48→13:49)
[2017-01-25] MEDS ORDERED: LIDOCAINE HCL 2% 2 ML VIAL (20MG/ML) ONE (11:48)
[2017-01-25] MEDS ORDERED: PROPOFOL IV EMULSION 10 MG/ML 20 ML VIAL IV ONE (11:48)
[2017-01-25] MEDS ORDERED: BUPIVACAINE 0.5 % 5 MG/1 ML MPF 30ML VIAL ONE (12:07)
[2017-01-25] MEDS ORDERED: BACITRACIN OINT 15 GM TUBE ONE (12:08)
[2017-01-25] MEDS ORDERED: LIDOCAINE HCL 1% 20 ML VIAL ONE (12:08)
[2017-01-25] MEDS ORDERED: CEFAZOLIN SOD 2000MG/10 ML IV PUSH IV ONE (12:15)
--- NOTE | 2017-01-25 12:18 | Clinical Documentation Query ---
OLIVIA Carballo : CLINICAL DOCUMENTATION QUERY Patient is an 81 year old female admitted for evaluation and treatment of abdominal pain, subsequently found to have a SBO with incarcerated incisional hernia. Admission BUN, creatinine, and estimated GFR were 39 mg/dl, 1.37 mg/dl, and 36 ml/min. Repeat values this a.m. (01/25) were 15 mg/dl, 0.82 mg/dl, and 68 ml/min. She has been treated with IVF and monitored with serial chemistries. Risk factors include age, SBO with anorexia and vomiting, medications. In your clinical opinion is this patient being managed for: ( ) Acute kidney failure, POA, resolved ( ) Not Agree ( x) Other explanation of clinical findings (Please Explain) ( ) Unable to determine (Please Define) ( ) Need to Discuss Acute kidney injury resolved on IV fluids The medical record reflects the following clinical findings, treatment, and risk factors. Clinical Indicators: As above Treatment:has been treated with IVF and monitored with serial chemistries Risk Factors: Age, SBO with anorexia and vomiting, medications Please clarify and document your clinical opinion in the progress notes and discharge summary. Terms such as "probable", "suspected", "likely", "questionable", "possible", or "still to be ruled out" are acceptable. IF IN AGREEMENT, YOU MUST DOCUMENT ABOVE DIAGNOSTIC STATEMENT IN DAILY PROGRESS NOTES AND DISCHARGE SUMMARY. This document is not part of the patient's record. Thank You, Don Allen, VIKTORIYA [phone]
--- NOTE | 2017-01-25 12:23 | History & Physical Bridge Note ---
H&P Re-Evaluation Bridge Note: I have examined the patient, reviewed the History & Physical and in the interval since the performance of the History & Physical I have noted the following changes of clinical significance: No changes noted
[2017-01-25] MEDS ORDERED: METOPROLOL TARTRATE 1 MG/ML VIAL ONE (13:01)
[2017-01-25] MEDS ORDERED: EpHEDrine SULFATE INJ 50 MG/ML AMP IV PRN (14:15)
[2017-01-25] MEDS ORDERED: NALOXONE HCL 0.4 MG/1 ML VIAL/CARP IV PRN (14:15)
[2017-01-25] MEDS ORDERED: ONDANSETRON INJ 2 MG/ML 2 ML VIAL IV PRN (14:15)
[2017-01-25] MEDS ORDERED: ATROPINE SULFATE 0.1 MG/ML 5ML SYR IV PRN (14:15)
[2017-01-25] MEDS ORDERED: PROMETHAZINE HCL INJ 12.5 MG in SODIUM CHLORIDE 0.9% 50ML 50 ML IV PRN (14:15)
[2017-01-25] MEDS ORDERED: ONDANSETRON INJ 2 MG/ML 2 ML VIAL ONE (16:04)
[2017-01-25] MEDS ORDERED: NEOSTIGMINE METHYLSULFATE 5 MG/5 ML SYR ONE (16:04)
[2017-01-25] MEDS ORDERED: GLYCOPYRROLATE INJ 0.2 MG/ML VIAL ONE (16:04)
[2017-01-25] MEDS ORDERED: CISATRACURIUM BESYLATE IV SOLN 2 MG/ML 10 ML VIAL ONE (16:04)
[2017-01-25] MEDS: LABETALOL HCL IV 5 MG/ML 20ML IV PRN ×2 (16:07→16:32)
[2017-01-25] MEDS: FENTANYL CITRATE INJ 50 MCG/1 ML 2 ML VIAL IV PRN ×4 (16:13→16:34)
--- NOTE | 2017-01-25 16:27 | [facility] Post Operative Brief Note ---
Immediate Operative Summary Operative Date Jan 25, 2017. Pre-Operative Diagnosis Right Incisional Hernia Post-Operative Diagnosis Right Incisional Hernia Procedure(s) Performed Incarcerated Incisional Hernia Repair with Mesh Surgeon Dr. Allan Travel Ot Surgeon(s) CRYSTAL Royal Estimated Blood Loss 50 ml Findings incarcerated incisional hernia Specimens none per surgeon Drains VITA x1 Anesthesia General Complication(s) None Disposition Recovery Room / PACU
--- NOTE | 2017-01-25 16:54 | Anesthesiology Progress Note ---
Anesthesia Post Op Note Date & Time Jan 25, 2017 at 16:54 Vital Signs Pain Intensity: 6.0 Vital Signs Past 12 Hours Date Time Temp Pulse Resp B/P (MAP) Pulse Ox O2 Delivery O2 Flow Rate FiO2 01/25/17 16:35 156/76 01/25/17 16:32 83 16 95 01/25/17 16:32 83 16 01/25/17 16:30 178/82 01/25/17 16:27 80 13 97 01/25/17 16:27 81 13 01/25/17 16:26 173/78 01/25/17 16:22 80 14 01/25/17 16:22 80 14 97 01/25/17 16:20 170/81 01/25/17 16:17 80 14 98 01/25/17 16:17 80 14 01/25/17 16:16 163/72 01/25/17 16:15 82 18 01/25/17 16:15 81 18 98 01/25/17 16:10 92 15 01/25/17 16:10 92 15 168/87 99 01/25/17 16:08 178/78 01/25/17 16:05 94 16 01/25/17 16:05 94 16 99 01/25/17 16:00 90 15 100 01/25/17 16:00 90 15 01/25/17 15:56 178/97 01/25/17 15:55 92 20 01/25/17 15:55 91 20 100 01/25/17 15:52 177/94 01/25/17 15:50 93 17 198/92 100 01/25/17 15:50 93 17 01/25/17 15:50 36.3 93 16 177/94 100 Oxymask 10 01/25/17 11:42 36.9 100 20 192/93 (126) 96 Room Air 01/25/17 10:34 85 170/80 (110) 01/25/17 09:17 85 169/69 (102) 01/25/17 08:18 96 Room Air 01/25/17 08:10 36.8 80 16 173/83 (113) 96 Room Air 01/25/17 07:30 Room Air Notes Mental Status: alert / awake / arousable, participated in evaluation Pt Amnestic to Procedure: Yes Nausea / Vomiting: adequately controlled Pain: adequately controlled Airway Patency, RR, SpO2: stable & adequate BP & HR: stable & adequate Hydration State: stable & adequate Anesthetic Complications: no major complications apparent
[2017-01-25] MEDS ORDERED: HYDROmorphone INJ 1 MG/ML SYR ONE (16:55)
[2017-01-25] MEDS ORDERED: HYDROmorphone INJ 0.5 MG/0.5 ML SYR IV PRN (17:00)
[2017-01-25] MEDS: MoRPHine SULFATE 2 MG/ML CARP IV PRN ×2 (18:21→21:02)
--- NOTE | 2017-01-25 20:03 | Progress Note ---
Internal Med Progress Note Date of Service: Jan 25, 2017. Provider Documentation: SUBJECTIVE: Patient comfortable s/p Incarcerated Incisional Hernia Repair with Mesh. Patient awake and alert. Denies acute severe pain General Appearance: mo distress Head: normocephalic, atraumatic Eyes: normal inspection, sclerae normal ENT: hearing grossly normal Neck: supple, trachea midline, NG tube Respiratory/Chest: lungs clear, normal breath sounds, no respiratory distress, no accessory muscle use Cardiovascular: regular rate, rhythm, no edema, no gallop, no JVD, no murmur, normal peripheral pulses Abdomen/GI: abdominal dressing, with VITA drain Extremities/Musculoskelatal: normal inspection, no pedal edema, normal range of motion Neurologic/Psych: alert, normal mood/affect, oriented x 3 Skin: normal color, warm/dry, no rash ASSESSMENT & PLAN: 81 yo F with SBO 2/2 incarcerated incisional hernia. ABDOMEN AND PELVIS CT WITHOUT CONTRAST 1. Findings compatible with high-grade small bowel obstruction secondary to obstructing right inguinal hernia. No pneumatosis or pneumoperitoneum. 2. Postoperative changes compatible with prior right hemicolectomy with ileocolic anastomosis. 3. Prior cholecystectomy. SBO 2/2 incarcerated incisional hernia-somewhat reducible on exam per surgery. Procedure of Incarcerated Incisional Hernia Repair with Mesh performed today because worsening bowel obstruction without improvement on NG tube alone Continue NG tube Repeat KUB on 01/26/17 Cont IVF. Phenol spray for oral comfort with NG tube Atrial fibrillation- prior to hospitalization had been on flecainide and Coumadin but held as patient NPO with NG tube suctioning HTN-uncontrolled 2/2 pain and unable to tolerate her BP meds. Maxzide and Norvasc held. Hydralazine IV prn DVT proph-SCDs. Coumadin held due to pre-surgery evaluation and surgery Full code Vital Signs: Date Time Temp Pulse Resp B/P (MAP) Pulse Ox O2 Delivery O2 Flow Rate FiO2 01/25/17 19:44 36.8 89 15 153/66 (95) 95 Nasal Cannula 1.0 01/25/17 18:45 37.0 84 15 155/64 (94) 96 Room Air 1.0 01/25/17 18:15 36.7 81 15 161/77 (105) 95 Nasal Cannula 1.0 01/25/17 17:22 75 18 94 01/25/17 17:22 75 18 01/25/17 17:21 163/73 01/25/17 17:17 79 17 96 01/25/17 17:17 79 17 01/25/17 17:15 172/81 01/25/17 17:13 36.4 01/25/17 17:12 78 17 95 01/25/17 17:12 78 17 01/25/17 17:11 79 19 177/76 96 01/25/17 17:11 79 19 01/25/17 17:06 79 14 01/25/17 17:06 79 14 171/87 96 01/25/17 17:04 170/71 01/25/17 17:01 78 15 175/74 96 01/25/17 17:01 78 15 01/25/17 16:56 80 19 01/25/17 16:56 80 19 174/80 96 01/25/17 16:51 79 22 164/90 95 01/25/17 16:51 80 22 01/25/17 16:49 171/71 01/25/17 16:46 78 15 01/25/17 16:46 78 15 179/71 95 01/25/17 16:41 79 15 01/25/17 16:41 79 15 178/81 95 01/25/17 16:36 80 17 01/25/17 16:36 79 17 96 01/25/17 16:35 156/76 01/25/17 16:32 83 16 95 01/25/17 16:32 83 16 01/25/17 16:30 178/82 01/25/17 16:27 80 13 97 01/25/17 16:27 81 13 01/25/17 16:26 173/78 01/25/17 16:22 80 14 01/25/17 16:22 80 14 97 01/25/17 16:20 170/81 01/25/17 16:17 80 14 98 01/25/17 16:17 80 14 01/25/17 16:16 163/72 17 16:15 82 18 01/25/17 16:15 81 18 98 17 16:10 92 15 01/25/17 16:10 92 15 168/87 99 01/25/17 16:08 178/78 12/4/17 16:05 94 16 01/25/17 16:05 94 16 99 01/25/17 16:00 90 15 100 01/25/17 16:00 90 15 01/25/17 15:56 178/97 01/25/17 15:55 92 20 01/25/17 15:55 91 20 100 01/25/17 15:52 177/94 01/25/17 15:50 93 17 198/92 100 01/25/17 15:50 93 17 01/25/17 15:50 36.3 93 16 177/94 100 Oxymask 10 01/25/17 11:42 36.9 100 20 192/93 (126) 96 Room Air 01/25/17 10:34 85 170/80 (110) 01/25/17 09:17 85 169/69 (102) 01/25/17 08:18 96 Room Air 01/25/17 08:10 36.8 80 16 173/83 (113) 96 Room Air 01/25/17 07:30 Room Air 01/24/17 23:34 Room Air 01/24/17 22:52 36.6 82 18 146/75 (98) 95 Room Air Lab Results: Results Past 24 Hours Test 01/25/17 06:39 Range/Units White Blood Count 5.35 4.8-10.8 K/uL Red Blood Count 3.83 4.2-5.4 M/uL Hemoglobin 11.4 12.0-16.0 g/dL Hematocrit 37.0 37-47 % Mean Corpuscular Volume 96.6 80-100 fL Mean Corpuscular Hemoglobin 29.8 25-34 pg Mean Corpuscular Hemoglobin Concent 30.8 32-36 g/dl Platelet Count 206 130-400 K/uL Mean Platelet Volume 9.9 7.4-10.4 fL Neutrophils (%) (Auto) 49.1 % Lymphocytes (%) (Auto) 31.6 % Monocytes (%) (Auto) 17.2 % Eosinophils (%) (Auto) 1.7 % Basophils (%) (Auto) 0.2 % Neutrophils # (Auto) 2.63 1.4-6.5 K/uL Lymphocytes # (Auto) 1.69 1.2-3.4 K/uL Monocytes # (Auto) 0.92 0.11-0.59 K/uL Eosinophils # (Auto) 0.09 0-0.5 K/uL Basophils # (Auto) 0.01 0-0.2 K/uL RDW Standard Deviation 56.1 36.4-46.3 fL RDW Coefficient of Variation 16.0 11.5-14.5 % Immature Granulocyte % (Auto) 0.2 % Immature Granulocyte # (Auto) 0.01 0.00-0.02 K/uL Prothrombin Time 23.4 9.0-12.0 SECONDS Prothromb Time International Ratio 2.1 0.9-1.1 Sodium Level 146 136-145 mmol/L Potassium Level 4.0 3.5-5.1 mmol/L Chloride Level 115 98-107 mmol/L Carbon Dioxide Level 26 21-32 mmol/L Anion Gap 5.0 3-11 mmol/L Blood Urea Nitrogen 15 7-18 mg/dl Creatinine 0.82 0.60-1.20 mg/dl Est Creatinine Clear Calc Drug Dose 51.8 ml/min Estimated GFR () 78.3 Estimated GFR (Non- 67.6 BUN/Creatinine Ratio 18.7 10-20 Random Glucose 111 70-99 mg/dl Calcium Level 8.5 8.5-10.1 mg/dl Total Bilirubin 0.3 0.2-1 mg/dl Aspartate Amino Transf (AST/SGOT) 26 15-37 U/L Alanine Aminotransferase (ALT/SGPT) 43 12-78 U/L Alkaline Phosphatase 51 45-117 U/L Total Protein 6.1 6.4-8.2 gm/dl Albumin 2.6 3.4-5.0 gm/dl Globulin 3.5 2.5-4.0 gm/dl Albumin/Globulin Ratio 0.7 0.9-2
[2017-01-25] MEDS ORDERED: CARVEDILOL 6.25 MG TAB PO SCH (21:00)
[2017-01-25] MEDS ORDERED: NURSING VERBAL MED ORDER ONE (22:30)
[2017-01-26] VITALS (9 sets, daily range): BP systolic 146–174; BP diastolic 73–87; PULSE 82–101; TEMP 36.7–37.8; O2SAT 92–94
[2017-01-26] MEDS: MoRPHine SULFATE 4 MG/ML 1 ML CARP\\VIAL IV PRN ×3 (00:07→07:57)
[2017-01-26] MEDS ORDERED: CEFAZOLIN SOD 2000MG/10 ML IV PUSH IV ONE (06:00)
[2017-01-26] MEDS: HydrALAZINE HCL 20 MG/ML VIAL IV. PRN (06:05)
--- NOTE | 2017-01-26 06:57 | OPERATIVE REPORT ---
DATE OF OPERATION: 01/25/2017 PREOPERATIVE DIAGNOSIS: Small-bowel obstruction and incarcerated incisional hernia. POSTOPERATIVE DIAGNOSIS: Same. OPERATION: Open repair of incarcerated incisional hernia with mesh. SURGEON: Orville Allan MD LEARNING ENGINEER: Penny Banks PA-C. ANESTHESIA: General. ESTIMATED BLOOD LOSS: About 50 mL. FINDINGS: Incarcerated incisional hernia. COMPLICATIONS: None. INDICATIONS FOR THE PROCEDURE: This is an 81-year-old female who was admitted with small-bowel obstruction with the incisional hernia and patient had conservative treatment over 2 days and the patient's symptoms getting worse. The patient required to do open repair incisional hernia possibly with mesh. So, I did talk to the patient about the benefit, risks and alternate procedure. I indicated the risks may include but not limited such as bleeding, infection, injury to the bowel, hernia recurrence, myocardial infarction, DVT, stroke, even . The patient and the patient's daughter understand. The patient's daughter signed informed consent and I answered all questions. DETAILS OF PROCEDURE: We brought the patient to the OR, put the patient in the supine position. The patient received SCD on bilateral legs to prevent DVT. Also, the patient received 2 grams Ancef IV for prophylactic antibiotic. The patient received general anesthesia without difficulty. The abdomen was appropriately prepped in routine sterile fashion. After a timeout, the patient's incisional hernia located in the right side of the abdomen. We made about 10 cm incision on the right side of the abdomen and showed the patient had incarcerated incisional hernia. We successfully and completely reduced the hernia back to the abdominal cavity. Also the patient had significant adhesions on the intra abdomen. So we did lysis of adhesions and rechecked, no active bleeding, no bowel injury and then we closed the fascia primarily with #1 Ethibond interruptedly. However, patient had weakness on the right side of the abdomen wall with Prolene mesh 6 x 6 inch and the hernia size was about 2 x 3 inch so I tried to overlap the hernia and we used #1 Ethibond interruptedly to attach the mesh to the fascia and then we closed the subcutaneous layer by using 2-0 Vicryl continuous running and closed skin by using staple. We put the dressing on. The patient tolerated the procedure well. All the instrument, needle and sponge count correct x2 at the end of case and after procedure, the patient transported to recovery room in stable condition. After the procedure, I did talk to the patient's family member about the OR finding, procedure we did and they understand. I attest to the content of the Intraoperative Record and any orders documented therein. Any exceptions are noted below. JOSEPH
--- NOTE | 2017-01-26 07:37 | DIAGNOSTIC IMAGING REPORT ---
KUB CLINICAL HISTORY: Bowel obstruction. COMPARISON STUDY: CT of the abdomen and pelvis January 23, 2017 and abdominal series January 25, 2017. FINDINGS: Interval postoperative findings within the right lower quadrant are noted with skin kamla and a surgical drain. Mild small bowel dilatation has slightly improved. Tip of nasogastric tube projects of the gastric antrum. Bowel anastomosis within the right upper quadrant is noted as well as cholecystectomy clips. There are no unexpected radiopaque foreign bodies. IMPRESSION: 1. Interval postoperative findings within the right lower quadrant with skin kamla and surgical drain in place. 2. Mild small bowel dilatation, slightly improved since prior exam. Electronically signed by: Mitchell Obrien M.D. 01/26/2017 7:36 AM Dictated Date/Time: 01/26/2017 7:33 AM
[2017-01-26 08:32] LABS: HEMATOCRIT 35.8 % (37-47); MEAN CELL VOLUME 94.2 fL (80-100); MEAN CORPUSCULAR HEMOGLOBIN 30.8 pg (25-34); MEAN CORPUSCULAR HGB CONC 32.7 g/dl (32-36); MEAN PLATELET VOLUME 9.7 fL (7.4-10.4); PLATELET COUNT 201 K/uL (130-400); WHITE BLOOD COUNT 8.78 K/uL (4.8-10.8)
[2017-01-26 08:40] LABS: INR 1.8 (0.9-1.1); PROTHROMBIN TIME (PATIENT) 18.2 SECONDS (9.0-12.0)
[2017-01-26] MEDS ORDERED: AMLODIPINE BESYLATE 5 MG TAB PO SCH (09:00)
[2017-01-26] MEDS ORDERED: TRIAMTERENE/HCTZ 37.5/25MG TAB PO SCH (09:00)
[2017-01-26 09:03] LABS: BUN/CREATININE RATIO 11.7 (10-20); CALCIUM 8.7 mg/dl (8.5-10.1); CREATININE 0.79 mg/dl (0.60-1.20); POTASSIUM 3.6 mmol/L (3.5-5.1)
--- NOTE | 2017-01-26 09:07 | Anesthesiology Progress Note ---
Anesthesia Post Op Note Date & Time Jan 26, 2017 at 09:07 Vital Signs Vital Signs Past 12 Hours Date Time Temp Pulse Resp B/P (MAP) Pulse Ox O2 Delivery O2 Flow Rate FiO2 01/26/17 08:00 37.5 01/26/17 07:46 37.8 92 16 167/81 (109) 92 Room Air 01/26/17 06:03 162/87 (112) 01/26/17 05:10 168/73 (104) 01/26/17 04:04 36.7 100 18 174/74 (107) 92 Room Air 01/26/17 00:00 92 Room Air 01/26/17 00:00 Room Air 01/25/17 22:51 37.1 96 18 155/75 (101) 95 Nasal Cannula 1.0 Notes Mental Status: alert / awake / arousable, participated in evaluation Pt Amnestic to Procedure: Yes Nausea / Vomiting: adequately controlled Pain: adequately controlled Airway Patency, RR, SpO2: stable & adequate BP & HR: stable & adequate Hydration State: stable & adequate Anesthetic Complications: no major complications apparent
[2017-01-26] MEDS: D5NSS + 20MEQ KCL 1,000 ML IV SCH ×2 (09:21→19:04)
--- NOTE | 2017-01-26 13:58 | Surgery Progress Note ---
Surgery Progress Note Date of Service Jan 26, 2017. Subjective Post OP Day: 1 + feeling well, + pain controlled, No chest pain, No SOB, No bowel movement, No flatus, No nausea, No vomiting Objective Vital Signs: Date Time Temp Pulse Resp B/P (MAP) Pulse Ox O2 Delivery O2 Flow Rate FiO2 01/26/17 10:52 37.0 101 19 148/83 (104) 92 Room Air 01/26/17 08:00 37.5 01/26/17 07:46 37.8 92 16 167/81 (109) 92 Room Air 01/26/17 07:35 Room Air 01/26/17 06:03 162/87 (112) 01/26/17 05:10 168/73 (104) 01/26/17 04:04 36.7 100 18 174/74 (107) 92 Room Air 01/26/17 00:00 92 Room Air 01/26/17 00:00 Room Air 01/25/17 22:51 37.1 96 18 155/75 (101) 95 Nasal Cannula 1.0 01/25/17 20:49 36.8 84 15 157/70 (99) 96 Nasal Cannula 1.0 01/25/17 19:44 36.8 89 15 153/66 (95) 95 Nasal Cannula 1.0 01/25/17 18:45 37.0 84 15 155/64 (94) 96 Room Air 1.0 01/25/17 18:20 95 Nasal Cannula 2.0 01/25/17 18:20 Nasal Cannula 95.0 01/25/17 18:15 36.7 81 15 161/77 (105) 95 Nasal Cannula 1.0 01/25/17 17:22 75 18 94 01/25/17 17:22 75 18 01/25/17 17:21 163/73 01/25/17 17:17 79 17 96 01/25/17 17:17 79 17 01/25/17 17:15 172/81 01/25/17 17:13 36.4 01/25/17 17:12 78 17 95 01/25/17 17:12 78 17 01/25/17 17:11 79 19 177/76 96 01/25/17 17:11 79 19 01/25/17 17:06 79 14 01/25/17 17:06 79 14 171/87 96 01/25/17 17:04 170/71 01/25/17 17:01 78 15 175/74 96 01/25/17 17:01 78 15 01/25/17 16:56 80 19 01/25/17 16:56 80 19 174/80 96 01/25/17 16:51 79 22 164/90 95 01/25/17 16:51 80 22 01/25/17 16:49 171/71 01/25/17 16:46 78 15 01/25/17 16:46 78 15 179/71 95 01/25/17 16:41 79 15 01/25/17 16:41 79 15 178/81 95 01/25/17 16:36 80 17 01/25/17 16:36 79 17 96 01/25/17 16:35 156/76 01/25/17 16:32 83 16 95 01/25/17 16:32 83 16 01/25/17 16:30 178/82 01/25/17 16:27 80 13 97 01/25/17 16:27 81 13 01/25/17 16:26 173/78 01/25/17 16:22 80 14 01/25/17 16:22 80 14 97 01/25/17 16:20 170/81 01/25/17 16:17 80 14 98 01/25/17 16:17 80 14 01/25/17 16:16 163/72 01/25/17 16:15 82 18 01/25/17 16:15 81 18 98 01/25/17 16:10 92 15 01/25/17 16:10 92 15 168/87 99 01/25/17 16:08 178/78 01/25/17 16:05 94 16 01/25/17 16:05 94 16 99 01/25/17 16:00 90 15 100 01/25/17 16:00 90 15 01/25/17 15:56 178/97 01/25/17 15:55 92 20 01/25/17 15:55 91 20 100 01/25/17 15:52 177/94 01/25/17 15:50 93 17 198/92 100 01/25/17 15:50 93 17 01/25/17 15:50 36.3 93 16 177/94 100 Oxymask 10 Physical Exam: VITA drainage (serosanguineous), nasogastric drainage (bilious), urine output (clear) General Appearance: WD/WN, no apparent distress Head: normocephalic, atraumatic Neck: trachea midline Respiratory/Chest: no respiratory distress, no accessory muscle use Abdomen: non distended, soft, + tenderness (appropriate post op at incision site) Incision(s): clean, dry, intact (dressing clean and dry, incision not inspected on POD # 1) Laboratory Results: Results Past 24 Hours Test 01/26/17 07:59 Range/Units White Blood Count 8.78 4.8-10.8 K/uL Red Blood Count 3.80 4.2-5.4 M/uL Hemoglobin 11.7 12.0-16.0 g/dL Hematocrit 35.8 37-47 % Mean Corpuscular Volume 94.2 80-100 fL Mean Corpuscular Hemoglobin 30.8 25-34 pg Mean Corpuscular Hemoglobin Concent 32.7 32-36 g/dl RDW Standard Deviation 53.9 36.4-46.3 fL RDW Coefficient of Variation 15.7 11.5-14.5 % Platelet Count 201 130-400 K/uL Mean Platelet Volume 9.7 7.4-10.4 fL Prothrombin Time 18.2 9.0-12.0 SECONDS Prothromb Time International Ratio 1.8 0.9-1.1 Sodium Level 142 136-145 mmol/L Potassium Level 3.6 3.5-5.1 mmol/L Chloride Level 109 98-107 mmol/L Carbon Dioxide Level 27 21-32 mmol/L Anion Gap 6.0 3-11 mmol/L Blood Urea Nitrogen 9 7-18 mg/dl Creatinine 0.79 0.60-1.20 mg/dl Est Creatinine Clear Calc Drug Dose 53.8 ml/min Estimated GFR () 81.9 Estimated GFR (Non- 70.7 BUN/Creatinine Ratio 11.7 10-20 Random Glucose 143 70-99 mg/dl Calcium Level 8.7 8.5-10.1 mg/dl Diagnostic Interpretation: KUB CLINICAL HISTORY: Bowel obstruction. COMPARISON STUDY: CT of the abdomen and pelvis January 23, 2017 and abdominal series January 25, 2017. FINDINGS: Interval postoperative findings within the right lower quadrant are noted with skin kamla and a surgical drain. Mild small bowel dilatation has slightly improved. Tip of nasogastric tube projects of the gastric antrum. Bowel anastomosis within the right upper quadrant is noted as well as cholecystectomy clips. There are no unexpected radiopaque foreign bodies. IMPRESSION: 1. Interval postoperative findings within the right lower quadrant with skin kamla and surgical drain in place. 2. Mild small bowel dilatation, slightly improved since prior exam. Assessment & Plan POD # 1 s/p open incisional hernia repair with mesh and lysis of adhesions -vitals stable, no leukocytosis - pain minimal and controlled - no return of bowel function - NGT with 100 cc in last 8 hour shift, bilious - abdomen soft, nondistended, KUB this am shows improvement in SB dilatation - adequate urine output Plan: continue current pain management with IV Morphine as needed will d/c Desai Catheter Continue IV fluids Continue NGT to LIS, await return of bowel function Will start 10 mg IV Reglan q 8h to help stimulate GI motility Continue VITA to bulb suction Encourage OOB to chair and ambulation with assistance, may clamp NGT for ambulation Dressing change tomorrow Incentive spirometry SCDs will be ordered May resume Coumadin tomorrow repeat am labs Dr. Allan has seen and examined patient agrees with above
--- NOTE | 2017-01-26 14:22 | Progress Note ---
Medicine Progress Note Date & Time of Visit: Jan 26, 2017 at 14:22 . Subjective Low grade temp of 37.8 this morning. No chest pain. No cough or dyspnea. Still has NGT. No nausea or vomiting. Not passing any flatus or stool. Still has Desai cath. Postop pain well-controlled. . Objective Last 8 Hrs Date Time Temp Pulse Resp B/P (MAP) Pulse Ox O2 Delivery O2 Flow Rate FiO2 01/26/17 10:52 37.0 101 19 148/83 (104) 92 Room Air 01/26/17 08:00 37.5 01/26/17 07:46 37.8 92 16 167/81 (109) 92 Room Air 01/26/17 07:35 Room Air Physical Exam: General- sitting in chair, no distress ENT- NGT Neck- no JVD Lungs- clear to auscultation; no resp distress Heart- RRR, no gallop Abdomen- quiet, soft - Desai cath draining clear urine Extremities- no pretibial edema or calf tenderness Skin- warm & dry Neuro- alert . Laboratory Results: Last 24 Hours Test 01/26/17 07:59 White Blood Count 8.78 K/uL Red Blood Count 3.80 M/uL Hemoglobin 11.7 g/dL Hematocrit 35.8 % Mean Corpuscular Volume 94.2 fL Mean Corpuscular Hemoglobin 30.8 pg Mean Corpuscular Hemoglobin Concent 32.7 g/dl RDW Standard Deviation 53.9 fL RDW Coefficient of Variation 15.7 % Platelet Count 201 K/uL Mean Platelet Volume 9.7 fL Prothrombin Time 18.2 SECONDS Prothromb Time International Ratio 1.8 Sodium Level 142 mmol/L Potassium Level 3.6 mmol/L Chloride Level 109 mmol/L Carbon Dioxide Level 27 mmol/L Anion Gap 6.0 mmol/L Blood Urea Nitrogen 9 mg/dl Creatinine 0.79 mg/dl Est Creatinine Clear Calc Drug Dose 53.8 ml/min Estimated GFR () 81.9 Estimated GFR (Non- 70.7 BUN/Creatinine Ratio 11.7 Random Glucose 143 mg/dl Calcium Level 8.7 mg/dl Assessment & Plan INCARCERATED RIGHT INCISIONAL HERNIA / SMALL BOWEL OBSTRUCTION Repair of incisional hernia performed by Dr. Allan 01/25. Doing well postop. ATRIAL FIBRILLATION Resume carvedilol and flecainide via NGT. Resume warfarin when OK from surgical perspective. HYPERTENSION Blood pressures elevated at times. Resume carvedilol via NGT. VTE PROPHYLAXIS SCD's. Resume warfarin when able. DISPOSITION Expected discharge to home. Family Medicine follow-up with Dr. Chaudhry. . Current Inpatient Medications: Current Inpatient Medications Medications (Trade) Dose Ordered Sig/[place] Route Start Time Stop Time Status Last Admin Dose Admin Ondansetron HCl (Zofran Inj) 4 mg Q6H PRN IV 01/23/17 12:00 02/22/17 11:59 Potassium Chloride/Dextrose/ Sod Cl 1,000 ml @ 100 mls/hr Q10H IV 01/23/17 14:00 02/22/17 13:59 01/26/17 09:21 100 MLS/HR Phenol (Chloraseptic 1.4% [place]) 2 sprays Q1H PRN MT 01/23/17 17:45 02/22/17 17:44 01/23/17 23:35 2 SPRAYS Triamterene/HCTZ (Maxzide 37.5/25 Tab) 2 tab DAILY PO 01/26/17 09:00 02/25/17 08:59 Hydralazine HCl (HydrALAZINE INJ) 5 mg Q6 PRN IV. 01/25/17 09:30 02/24/17 09:29 01/26/17 06:05 5 MG Morphine Sulfate (MoRPHine SULFATE INJ) 1 mg Q1H PRN IV 01/25/17 16:00 02/08/17 15:59 Morphine Sulfate (MoRPHine SULFATE INJ) 2 mg Q1H PRN IV 01/25/17 16:00 02/08/17 15:59 01/25/17 21:02 2 MG Morphine Sulfate (MoRPHine SULFATE INJ) 4 mg Q1H PRN IV 01/25/17 16:00 02/08/17 15:59 01/26/17 07:57 4 MG Hydromorphone HCl (Dilaudid Inj) 0.25 mg Q5M PRN IV 01/25/17 17:00 01/26/17 16:59 Metoclopramide HCl (Reglan Inj) 10 mg Q8 IV 01/26/17 14:00 02/25/17 13:59
[2017-01-26] MEDS: METOCLOPRAMIDE HCL INJ 5 MG/ML 2 ML VIAL IV SCH ×2 (14:27→21:00)
[2017-01-26] MEDS ORDERED: CARVEDILOL 6.25 MG TAB GT ONE (14:32)
[2017-01-26] MEDS: FLECAINIDE ACETATE 100 MG TAB PO SCH (20:59)
[2017-01-26] MEDS: CARVEDILOL 6.25 MG TAB PO SCH (21:00)
[2017-01-26] MEDS ORDERED: CARVEDILOL 6.25 MG TAB PO SCH (21:00)
[2017-01-27] MEDS: D5NSS + 20MEQ KCL 1,000 ML IV SCH ×2 (04:34→16:24)
[2017-01-27] MEDS: MoRPHine SULFATE 2 MG/ML CARP IV PRN ×3 (04:41→21:30)
[2017-01-27 05:55] LABS: HEMATOCRIT 31.7 % (37-47); MEAN CELL VOLUME 94.1 fL (80-100); MEAN CORPUSCULAR HGB CONC 31.9 g/dl (32-36); MEAN PLATELET VOLUME 9.5 fL (7.4-10.4); PLATELET COUNT 190 K/uL (130-400); RED BLOOD COUNT 3.37 M/uL (4.2-5.4); WHITE BLOOD COUNT 7.88 K/uL (4.8-10.8)
[2017-01-27 06:01] LABS: INR 1.4 (0.9-1.1); PROTHROMBIN TIME (PATIENT) 14.4 SECONDS (9.0-12.0)
[2017-01-27] MEDS: METOCLOPRAMIDE HCL INJ 5 MG/ML 2 ML VIAL IV SCH (06:15)
[2017-01-27 06:24] LABS: CALCIUM 8.6 mg/dl (8.5-10.1); CREATININE 0.74 mg/dl (0.60-1.20); POTASSIUM 3.7 mmol/L (3.5-5.1)
[2017-01-27 07:33] VITALS: BP 166/82; PULSE 84; TEMP 36.8; O2SAT 93
[2017-01-27 08:29] VITALS: O2SAT 93
[2017-01-27] MEDS: FLECAINIDE ACETATE 100 MG TAB PO SCH ×2 (08:43→20:43)
[2017-01-27] MEDS: CARVEDILOL 6.25 MG TAB PO SCH ×2 (08:43→20:40)
--- NOTE | 2017-01-27 09:39 | Surgery Progress Note ---
Surgery Progress Note Date of Service Jan 27, 2017. Subjective Post OP Day: 2 (s/p open incisional hernia repair with mesh) + feeling well, + bowel movement, + flatus, + pain controlled, No complaints, No chest pain, No SOB, No nausea, No vomiting pain and discomfort from NGT Objective Vital Signs: Date Time Temp Pulse Resp B/P (MAP) Pulse Ox O2 Delivery O2 Flow Rate FiO2 01/27/17 08:29 93 Room Air 01/27/17 07:33 36.8 84 21 166/82 (110) 93 Room Air 01/27/17 00:25 Room Air 01/26/17 22:55 36.7 82 18 146/73 (97) 92 Room Air 01/26/17 16:20 Room Air 01/26/17 15:04 37.0 100 16 156/87 (110) 94 Room Air 01/26/17 10:52 37.0 101 19 148/83 (104) 92 Room Air Physical Exam: VITA drainage (serosanguineous), nasogastric drainage (Dark Bilious) General Appearance: WD/WN, no apparent distress Head: normocephalic, atraumatic Neck: trachea midline Respiratory/Chest: lungs clear, normal breath sounds, no respiratory distress, no accessory muscle use Cardiovascular: regular rate, rhythm, no murmur Abdomen: normal bowel sounds, non distended, soft, no organomegaly, no pulsatile mass, + tenderness (appropriate at incision site) Incision(s): clean, dry (dressing clean and dry) Laboratory Results: Results Past 24 Hours Test 01/27/17 05:25 Range/Units White Blood Count 7.88 4.8-10.8 K/uL Red Blood Count 3.37 4.2-5.4 M/uL Hemoglobin 10.1 12.0-16.0 g/dL Hematocrit 31.7 37-47 % Mean Corpuscular Volume 94.1 80-100 fL Mean Corpuscular Hemoglobin 30.0 25-34 pg Mean Corpuscular Hemoglobin Concent 31.9 32-36 g/dl RDW Standard Deviation 54.1 36.4-46.3 fL RDW Coefficient of Variation 15.6 11.5-14.5 % Platelet Count 190 130-400 K/uL Mean Platelet Volume 9.5 7.4-10.4 fL Prothrombin Time 14.4 9.0-12.0 SECONDS Prothromb Time International Ratio 1.4 0.9-1.1 Sodium Level 143 136-145 mmol/L Potassium Level 3.7 3.5-5.1 mmol/L Chloride Level 113 98-107 mmol/L Carbon Dioxide Level 27 21-32 mmol/L Anion Gap 3.0 3-11 mmol/L Blood Urea Nitrogen 14 7-18 mg/dl Creatinine 0.74 0.60-1.20 mg/dl Est Creatinine Clear Calc Drug Dose 57.4 ml/min Estimated GFR () 88.7 Estimated GFR (Non- 76.5 BUN/Creatinine Ratio 19.0 10-20 Random Glucose 131 70-99 mg/dl Calcium Level 8.6 8.5-10.1 mg/dl Assessment & Plan POD # 2 s/p open incisional hernia repair with mesh, lysis of adhesions -vitals stable, still hypertensive - afebrile, no leukocytosis - NGT output, dark bilious - +bowel function Plan: Continue current pain management as needed Decrease IV fluids to 50 mls/hr DC NGT, start full liquids Discontinue Reglan Start PO colace 100 mg daily Continue VITA drain to bulb suction OOB to chair and ambulate Continue SCDs, Resume Coumadin and Aspirin today. Will bridge with Lovenox 40 mg SQ daily until discharge Dr. Allan has seen patient, agrees with above
[2017-01-27] MEDS ORDERED: WARFARIN SOD 4 MG TAB PO ONE (10:45)
[2017-01-27 11:35] VITALS: BP 142/78; PULSE 83; TEMP 36.8; O2SAT 95
[2017-01-27] MEDS: ENOXAPARIN 40 MG/0.4 ML SYR SQ SCH (14:02)
[2017-01-27 15:11] VITALS: BP 154/84; PULSE 80; TEMP 36.9; O2SAT 94
--- NOTE | 2017-01-27 19:25 | Progress Note ---
Medicine Progress Note Date & Time of Visit: Jan 27, 2017 at 10:50 . Subjective NGT removed. Enjoying clear liquids. No nausea or vomiting. Passing flatus and stool. No chest pain or palpitations. No cough or SOB. . Objective Last 8 Hrs Date Time Temp Pulse Resp B/P (MAP) Pulse Ox O2 Delivery O2 Flow Rate FiO2 01/27/17 16:00 Room Air 01/27/17 15:11 36.9 80 16 154/84 (107) 94 Room Air 01/27/17 11:35 36.8 83 18 142/78 (99) 95 Room Air Physical Exam: General- sitting in chair, no distress Neck- no JVD Lungs- clear to auscultation; no resp distress Heart- RRR, no gallop Abdomen- quiet, soft Extremities- no pretibial edema or calf tenderness Skin- warm & dry Neuro- alert . Laboratory Results: Last 24 Hours Test 01/27/17 05:25 White Blood Count 7.88 K/uL Red Blood Count 3.37 M/uL Hemoglobin 10.1 g/dL Hematocrit 31.7 % Mean Corpuscular Volume 94.1 fL Mean Corpuscular Hemoglobin 30.0 pg Mean Corpuscular Hemoglobin Concent 31.9 g/dl RDW Standard Deviation 54.1 fL RDW Coefficient of Variation 15.6 % Platelet Count 190 K/uL Mean Platelet Volume 9.5 fL Prothrombin Time 14.4 SECONDS Prothromb Time International Ratio 1.4 Sodium Level 143 mmol/L Potassium Level 3.7 mmol/L Chloride Level 113 mmol/L Carbon Dioxide Level 27 mmol/L Anion Gap 3.0 mmol/L Blood Urea Nitrogen 14 mg/dl Creatinine 0.74 mg/dl Est Creatinine Clear Calc Drug Dose 57.4 ml/min Estimated GFR () 88.7 Estimated GFR (Non- 76.5 BUN/Creatinine Ratio 19.0 Random Glucose 131 mg/dl Calcium Level 8.6 mg/dl Assessment & Plan INCARCERATED RIGHT INCISIONAL HERNIA / SMALL BOWEL OBSTRUCTION Repair of incisional hernia performed by Dr. Allan 01/25. Doing well postop. NGT removed. Starting clear liquids. ATRIAL FIBRILLATION Continue carvedilol, flecainide, warfarin. HYPERTENSION Continue carvedilol. Restart amlodipine tomorrow. VTE PROPHYLAXIS SCD's. Resume warfarin. DISPOSITION Expected discharge to home. Family Medicine follow-up with Dr. Chaudhry. . Current Inpatient Medications: Current Inpatient Medications Medications (Trade) Dose Ordered Sig/[place] Route Start Time Stop Time Status Last Admin Dose Admin Ondansetron HCl (Zofran Inj) 4 mg Q6H PRN IV 01/23/17 12:00 02/22/17 11:59 Potassium Chloride/Dextrose/ Sod Cl 1,000 ml @ 50 mls/hr Q20H IV 01/23/17 14:00 02/22/17 13:59 01/27/17 16:24 50 MLS/HR Phenol (Chloraseptic 1.4% [place]) 2 sprays Q1H PRN MT 01/23/17 17:45 02/22/17 17:44 01/23/17 23:35 2 SPRAYS Triamterene/HCTZ (Maxzide 37.5/25 Tab) 2 tab DAILY PO 01/26/17 09:00 02/25/17 08:59 Future Hold Hydralazine HCl (HydrALAZINE INJ) 5 mg Q6 PRN IV. 01/25/17 09:30 02/24/17 09:29 01/26/17 06:05 5 MG Morphine Sulfate (MoRPHine SULFATE INJ) 1 mg Q1H PRN IV 01/25/17 16:00 02/08/17 15:59 Morphine Sulfate (MoRPHine SULFATE INJ) 2 mg Q1H PRN IV 01/25/17 16:00 02/08/17 15:59 01/27/17 10:20 2 MG Morphine Sulfate (MoRPHine SULFATE INJ) 4 mg Q1H PRN IV 01/25/17 16:00 02/08/17 15:59 01/26/17 07:57 4 MG Carvedilol (Coreg Tab) 6.25 mg BID PO 01/26/17 21:00 02/25/17 20:59 01/27/17 08:43 6.25 MG Flecainide Acetate (Tambocor Tab) 50 mg Q12 PO 01/26/17 21:00 02/25/17 20:59 01/27/17 08:43 50 MG Aspirin (Ecotrin Tab) 81 mg DAILY PO 01/28/17 09:00 02/27/17 08:59 Warfarin Sodium (Coumadin Tab) 2 mg DAILY@1600 PO 01/28/17 16:00 02/27/17 15:59 Pantoprazole Sodium (Protonix Tab) 40 mg QAM PO 01/28/17 09:00 02/27/17 08:59 Docusate Sodium (coLACE CAP) 100 mg DAILY PO 01/28/17 09:00 02/27/17 08:59 Enoxaparin Sodium (Lovenox Inj) 40 mg QAM SQ 01/27/17 11:00 02/26/17 10:59 01/27/17 14:02 40 MG
[2017-01-27 23:19] VITALS: BP 146/72; PULSE 88; TEMP 36.8; O2SAT 95
[2017-01-28 07:00] VITALS: BP 165/80; PULSE 84; TEMP 36.7; O2SAT 96
[2017-01-28 08:30] VITALS: BP 164/77; PULSE 80
[2017-01-28] MEDS: CARVEDILOL 6.25 MG TAB PO SCH (08:31)
[2017-01-28] MEDS: ENOXAPARIN 40 MG/0.4 ML SYR SQ SCH (08:32)
[2017-01-28] MEDS: FLECAINIDE ACETATE 100 MG TAB PO SCH (08:32)
[2017-01-28] MEDS: MoRPHine SULFATE 2 MG/ML CARP IV PRN (08:34)
[2017-01-28] MEDS ORDERED: ASPIRIN 81 MG ECTAB PO SCH (09:00)
[2017-01-28] MEDS ORDERED: AMLODIPINE BESYLATE 5 MG TAB PO SCH (09:00)
[2017-01-28] MEDS ORDERED: PANTOprazole SOD 40 MG TAB PO SCH (09:00)
[2017-01-28] MEDS ORDERED: DOCUSATE SODIUM 100 MG CAP PO SCH (09:00)
--- NOTE | 2017-01-28 10:02 | Surgery Progress Note ---
Surgery Progress Note Date of Service Jan 28, 2017. Subjective Post OP Day: 3 (s/p open incisional hernia repair with mesh) + feeling well, + complaints (neck pain and headache), + ambulating, + bowel movement, + flatus, + pain controlled, + diet (tolerating full liquids), No chest pain, No SOB, No nausea, No vomiting Objective Vital Signs: Date Time Temp Pulse Resp B/P (MAP) Pulse Ox O2 Delivery O2 Flow Rate FiO2 01/28/17 07:15 Room Air 01/28/17 07:00 36.7 84 18 165/80 (108) 96 Room Air 01/28/17 00:30 Room Air 01/27/17 23:19 36.8 88 18 146/72 (96) 95 Room Air 01/27/17 16:00 Room Air 01/27/17 15:11 36.9 80 16 154/84 (107) 94 Room Air 01/27/17 11:35 36.8 83 18 142/78 (99) 95 Room Air Physical Exam: HERMILA drainage (serous) General Appearance: WD/WN, no apparent distress Head: normocephalic, atraumatic Neck: trachea midline Respiratory/Chest: no respiratory distress, no accessory muscle use Abdomen: non distended, soft, no organomegaly, no pulsatile mass, + tenderness (mild tenderness at incision site) Incision(s): clean, dry, intact, no erythema, no drainage, findings (kamla intact) Assessment & Plan POD # 3 s/p open incisional hernia repair with mesh, lysis of adhesions -vitals stable, still hypertensive - afebrile, no leukocytosis - HERMILA drain with serous output - +bowel function - minimal post op pain Plan: Continue current pain management as needed Advance diet to regular diet Continue HERMILA drain to bulb suction , will go home with Drain. HERMILA drain teaching prior to discharge Abdominal binder, to go home with patient OOB to chair and ambulate Continue SCDs, Continue Coumadin and Aspirin. Lovenox 40 mg SQ daily until discharge From surgical standpoint doing well, pain controlled, tolerating diet, may be discharged today Discharge instructions reviewed and provided, follow-up 1 week in surgical office or sooner for hermila drain removal Dr. corona has seen and examined patient, agrees with above
[2017-01-28 10:10] VITALS: BP 129/72; PULSE 86
--- NOTE | 2017-01-28 10:14 | Discharge Instructions ---
Discharge Instructions Date of Service Jan 28, 2017. Admission Reason for Admission: SBO Discharge Discharge Diagnosis / Problem: same, recurrent incisional hernia Discharge Goals Goal(s): Decrease discomfort, Improve function Activity Recommendations Activity Limitations: as noted below No heavy lifting over 10 pounds for 4-6 weeks No strenuous activity until cleared by surgeon No submerging incisions underwater for 2 weeks (no bathing, swimming, or hot tubs) No driving while taking narcotic pain medication or until you are pain free . Instructions / Follow-Up Instructions / Follow-Up You may shower in 1 day and then remove dressing, sponge bath and wash hair in meantime You have surgical kamla on incision that will be removed in the office at follow-up Please keep incision covered with gauze and change daily or as needed to keep clean and dry Walking and light activity is encouraged. You may do stairs but take them slow and easy. You will be given prescription for pain as needed. You may take extra strength Tylenol or Ibuprofen as needed for pain. If you are taking Percocet do not take Tylenol in between doses as Percocet already has Tylenol in it, substitute with Ibuprofen instead. Follow-up with Dr. Allan in 1 week for post operative follow up and staple removal. Please call office at [phone] to make an appointment You will be going home with surgical drain. You will need to monitor output on daily basis and keep record. Once amount is below 30 cc per day call office for a nurse to remove drain. Wear abdominal binder during the day for support, you may take it off at night time for comfort. Current Hospital Diet Patient's current hospital diet: Regular Diet Discharge Diet Recommended Diet: Regular Diet Procedures Procedures Performed: Incarcerated Incisional Hernia Repair with Mesh Pending Studies Studies pending at discharge: no Medical Emergencies . Who to Call and When: Medical Emergencies: If at any time you feel your situation is an emergency, please call 911 immediately. . Non-Emergent Contact Non-Emergency issues call your: Primary Care Provider, Surgeon Call Non-Emergent contact if: you have a fever, temperature is above 101, your pain is not controlled, your pain is worsening, your pain is unusual for you, wound has increased drainage, wound has increased redness, wound has increased pain . "Provider Documentation" section prepared by Penny Banks. . VTE Core Measure Inpt VTE Proph given/why not?: Enoxaparin (Lovenox)SQ, SCD's [place] Drug Monitoring Program Search Results: patient reviewed within database, no issues identified
[2017-01-28] MEDS: TRAMADOL HCL 50 MG TAB PO PRN ×2 (10:22→18:25)
[2017-01-28] MEDS ORDERED: OXYC-57 PO (11:23)
[2017-01-28] MEDS: D5NSS + 20MEQ KCL 1,000 ML IV SCH (11:39)
[2017-01-28 14:48] VITALS: BP 136/73; PULSE 68; TEMP 36.4; O2SAT 96
[2017-01-28] MEDS ORDERED: WARFARIN SOD 2 MG TAB PO SCH (16:00)
--- NOTE | 2017-01-28 17:52 | Progress Note ---
Medicine Progress Note Date & Time of Visit: Jan 28, 2017 at 17:51 . Subjective Seen this morning and reassessed in the evening. Tolerated full liquids for breakfast. Tolerated solid diet for lunch. No nausea or vomiting. Passing stool and flatus. No CP, palpitations, SOB. Pain well-controlled. . Objective Last 8 Hrs Date Time Temp Pulse Resp B/P (MAP) Pulse Ox O2 Delivery O2 Flow Rate FiO2 01/28/17 15:45 Room Air 01/28/17 14:48 36.4 68 16 136/73 (94) 96 Room Air 01/28/17 10:10 86 129/72 (91) Physical Exam: General- sitting in chair, no distress Neck- no JVD Lungs- clear to auscultation; no resp distress Heart- RRR, no gallop Abdomen- bandaged, + BS, soft, nontender Extremities- no pretibial edema or calf tenderness Skin- warm & dry Neuro- alert . Assessment & Plan INCARCERATED RIGHT INCISIONAL HERNIA / SMALL BOWEL OBSTRUCTION Repair of incisional hernia performed by Dr. Allan 01/25. Doing well postop. NGT removed. Diet advanced without problems. ATRIAL FIBRILLATION Remains in NSR. Continue carvedilol, flecainide, warfarin. HYPERTENSION Continue amlodipine and carvedilol. VTE PROPHYLAXIS SCD's. Warfarin resumed. Ambulating. DISPOSITION Discharge to home. Family Medicine follow-up with Dr. Chaudhry. General Surgery follow-up with Dr. Allan. . Current Inpatient Medications: Current Inpatient Medications Medications (Trade) Dose Ordered Sig/[place] Route Start Time Stop Time Status Last Admin Dose Admin Ondansetron HCl (Zofran Inj) 4 mg Q6H PRN IV 01/23/17 12:00 02/22/17 11:59 01/28/17 00:15 4 MG Potassium Chloride/Dextrose/ Sod Cl 1,000 ml @ 50 mls/hr Q20H IV 01/23/17 14:00 02/22/17 13:59 01/28/17 11:39 50 MLS/HR Phenol (Chloraseptic 1.4% [place]) 2 sprays Q1H PRN MT 01/23/17 17:45 02/22/17 17:44 01/23/17 23:35 2 SPRAYS Triamterene/HCTZ (Maxzide 37.5/25 Tab) 2 tab DAILY PO 01/26/17 09:00 02/25/17 08:59 Future Hold Hydralazine HCl (HydrALAZINE INJ) 5 mg Q6 PRN IV. 01/25/17 09:30 02/24/17 09:29 01/26/17 06:05 5 MG Morphine Sulfate (MoRPHine SULFATE INJ) 1 mg Q1H PRN IV 01/25/17 16:00 02/08/17 15:59 01/28/17 08:34 1 MG Morphine Sulfate (MoRPHine SULFATE INJ) 2 mg Q1H PRN IV 01/25/17 16:00 02/08/17 15:59 01/27/17 10:20 2 MG Morphine Sulfate (MoRPHine SULFATE INJ) 4 mg Q1H PRN IV 01/25/17 16:00 02/08/17 15:59 01/26/17 07:57 4 MG Carvedilol (Coreg Tab) 6.25 mg BID PO 01/26/17 21:00 02/25/17 20:59 01/28/17 08:31 6.25 MG Flecainide Acetate (Tambocor Tab) 50 mg Q12 PO 01/26/17 21:00 02/25/17 20:59 01/28/17 08:32 50 MG Aspirin (Ecotrin Tab) 81 mg DAILY PO 01/28/17 09:00 02/27/17 08:59 01/28/17 08:31 81 MG Warfarin Sodium (Coumadin Tab) 2 mg DAILY@1600 PO 01/28/17 16:00 02/27/17 15:59 01/28/17 15:49 2 MG Pantoprazole Sodium (Protonix Tab) 40 mg QAM PO 01/28/17 09:00 02/27/17 08:59 01/28/17 08:31 40 MG Docusate Sodium (coLACE CAP) 100 mg DAILY PO 01/28/17 09:00 02/27/17 08:59 Enoxaparin Sodium (Lovenox Inj) 40 mg QAM SQ 01/27/17 11:00 02/26/17 10:59 01/28/17 08:32 40 MG Amlodipine Besylate (Norvasc Tab) 5 mg QAM PO 01/28/17 09:00 02/27/17 08:59 01/28/17 08:32 5 MG Tramadol HCl (Ultram Tab) 50 mg Q6H PRN PO 01/28/17 08:45 02/27/17 08:44 01/28/17 10:22 50 MG
[2017-01-28] MEDS ORDERED: IBAN150T PO (17:56)
[2017-01-28] MEDS ORDERED: CALC200S6 (17:56)
[2017-01-28 18:31] VITALS: BP 136/73; PULSE 68; TEMP 36.4; O2SAT 96
--- NOTE | 2017-01-29 08:11 | Discharge Summary ---
Discharge Summary Date of Service Jan 29, 2017. Discharge Summary Admission Date: Jan 23, 2017 at 11:59 Discharge Date: Jan 28, 2017 Discharge Disposition: Home Principal Diagnosis: small bowel obstruction secondary to incarcerated incisional hernia . Secondary Diagnoses/Problems: Chronic and Resolved Medical Problems: (1) Atrial fibrillation Status: Chronic (2) Benign hypertension Status: Chronic (3) Gastroesophageal reflux disease Status: Chronic (4) Hernia, umbilical Status: Resolved (5) Incisional hernia Status: Resolved (6) personal history of colon cancer Status: Chronic Surgical Problems: (1) History of colon resection Status: Resolved (2) Status post right knee replacement Status: Chronic (3) S/P colon resection Status: Chronic . Procedures: CT abdomen and pelvis IV fluids IV meds repair of incarcerated incisional hernia by Dr. Allan on 01/25/17 . Consultations: General Surgery . Medication Reconciliation New Medications: Oxycodone/Acetaminophen 5MG/325MG (Percocet 5MG/325MG) Tab 1 TABLET PO Q4H PRN for Pain, #18 TAB Continued Medications: Amlodipine (Norvasc) 5 Mg Tab 5 MG PO DAILY, TAB Aspirin (Aspirin Ec) 81 Mg Tab 81 MG PO DAILY Calcitonin ([place]) (Calcitonin [place]) 200 Unit/Act Spr 1 SPRAY NA DAILY Carvedilol (Coreg) 6.25 Mg Tab 6.25 MG PO BID, TAB Cyanocobalamin (B-12) 100 Mcg Tab 100 MCG PO DAILY Flecainide (Tambocor) 100 Mg Tab 50 MG PO BID, TAB Ibandronate Sodium (Boniva) 150 Mg Tab 150 MG PO MONTHLY, TAB Lorazepam (Ativan) 0.5 Mg Tab 0.25 MG PO TID PRN for Anxiety/Agitation, TAB Omeprazole (Omeprazole) 20 Mg Tab 20 MG PO QAM for 90 Days, #90 TAB 1 Refill Tramadol HCl (Tramadol HCl) 50 Mg Tab 50 MG PO QID PRN for Pain Triamterene/Hctz (Maxzide 75MG/50MG) Tab 1 TAB PO DAILY, TAB Warfarin Sod ([place]antoven) 4 Mg Tab 4 MG PO WK, TAB TAKES ON MONDAYS. Warfarin Sod (Jantoven) 4 Mg Tab 2 MG PO 6XWK, TAB TAKES ON , WED, TH, WED, SAT & SUN Admission Information HPI (per Admitting provider): 81 yo F presents with 2 days of nausea with reports of persistent vomiting since yesterday. She also reports abdominal pain especially in the RLQ area. She went to her PCP office today and was referred to the ER for further workup. In the ER a CT a/p without contrast revealed an incarcerated hernia that was causing a SBO. She was evaluated by General Surgery who feels she would be best with a trial of supportive care with NGT first, prior to surgery. An NGT was placed and she was admitted to the floor. ROS otherwise reveal no chest pain or shortness of breath no or in the last few months, no headache, fevers, chills, UTI symptoms or blood in her vomitus. She also denies any diarrhea having a BM yesterday. She has a h/o atrial fibrillation and is on flecainide and coumadin for this and is well controlled. She is currently in sinus rhythm. She has a h/o LBBB which is present on EKG today. She is not ill- appearing. Family including her and daughter are at the bedside and verbalized understanding of the plan. . Physical Exam (per Admitting): General Appearance: WD/WN, + mild distress Head: normocephalic, atraumatic Eyes: normal inspection, PERRL, sclerae normal ENT: hearing grossly normal, pharynx normal Neck: supple, trachea midline Respiratory/Chest: lungs clear, normal breath sounds, no respiratory distress, no accessory muscle use Cardiovascular: regular rate, rhythm, no edema, no gallop, no JVD, no murmur , normal peripheral pulses Abdomen/GI: normal bowel sounds, soft, + tenderness (RLQ), + hernia, + pertinent finding (horizontal scar along RLQ-well healed) Back: normal inspection Extremities/Musculoskelatal: normal inspection, no pedal edema, normal range of motion 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 Initially managed with bowel rest, NGT, IV fluids. Repair of incisional hernia performed by Dr. Allan 01/25. Did well postop. NGT removed. Diet advanced without problems. ATRIAL FIBRILLATION Remained in NSR. Continue carvedilol, flecainide, warfarin. HYPERTENSION Continue amlodipine and carvedilol. VTE PROPHYLAXIS SCD's. Warfarin resumed. Ambulating. DISPOSITION Discharged to home. Family Medicine follow-up with Dr. Chaudhry. General Surgery follow-up with Dr. Allan. . Total time spent on discharge = 35 min. This includes examination of the patient, discharge planning, medication reconciliation, and communication with other providers. Discharge Instructions Date of Service Jan 28, 2017. Admission Reason for Admission: SBO Discharge Discharge Diagnosis / Problem: same, recurrent incisional hernia Discharge Goals Goal(s): Decrease discomfort, Improve function Activity Recommendations Activity Limitations: as noted below No heavy lifting over 10 pounds for 4-6 weeks No strenuous activity until cleared by surgeon No submerging incisions underwater for 2 weeks (no bathing, swimming, or hot tubs) No driving while taking narcotic pain medication or until you are pain free . Instructions / Follow-Up Instructions / Follow-Up You may shower in 1 day and then remove dressing, sponge bath and wash hair in meantime You have surgical kamla on incision that will be removed in the office at follow-up Please keep incision covered with gauze and change daily or as needed to keep clean and dry Walking and light activity is encouraged. You may do stairs but take them slow and easy. You will be given prescription for pain as needed. You may take extra strength Tylenol or Ibuprofen as needed for pain. If you are taking Percocet do not take Tylenol in between doses as Percocet already has Tylenol in it, substitute with Ibuprofen instead. Follow-up with Dr. Allan in 1 week for post operative follow up and staple removal. Please call office at [phone] to make an appointment You will be going home with surgical drain. You will need to monitor output on daily basis and keep record. Once amount is below 30 cc per day call office for a nurse to remove drain. Wear abdominal binder during the day for support, you may take it off at night time for comfort. Current Hospital Diet Patient's current hospital diet: Regular Diet Discharge Diet Recommended Diet: Regular Diet Procedures Procedures Performed: Incarcerated Incisional Hernia Repair with Mesh Pending Studies Studies pending at discharge: no Medical Emergencies . Who to Call and When: Medical Emergencies: If at any time you feel your situation is an emergency, please call 911 immediately. . Non-Emergent Contact Non-Emergency issues call your: Primary Care Provider, Surgeon Call Non-Emergent contact if: you have a fever, temperature is above 101, your pain is not controlled, your pain is worsening, your pain is unusual for you, wound has increased drainage, wound has increased redness, wound has increased pain . "Provider Documentation" section prepared by Penny Banks. . VTE Core Measure Inpt VTE Proph given/why not?: Enoxaparin (Lovenox)SQ, SCD's [place] Drug Monitoring Program Search Results: patient reviewed within database, no issues identified Addendum: David Pelaez M.D. on 01/28/17 @ 17:59 Discharge Inst - Addendum Addendum Notes: APPOINTMENTS: FAMILY MEDICINE 02/01/2017 1:00 PM Bety Chaudhry MD OTHER INSTRUCTIONS: Seek medical attention if you have: * temperature above 101 * chest pain or trouble breathing * abdominal pain, nausea, vomiting * diarrhea, dark stools or bloody stools * any unanswered questions or concerns Call 911 if symptoms are severe. Call if you have any questions or problems. My cell # is [phone]. You can also reach a [facility] hospitalist on duty at [facility] 24 hours a day by calling [phone]. Please take good care of yourself. David Pelaez . Addendum Provider: Addendum Notes were documented by provider David Pelaez. .
== END 2017-01-28 19:15 | disposition home or self-care (01) | DRG 354 ==
LOC: C.EDB 09:11 → C.MSW 11:59 → ENRESERV 12:45
PROVIDERS: ADMIT Hospitalist; ATTEND Hospitalist
PROC: 0WUF0JZ Supplement Abdominal Wall with Synthetic Substitute, Open Approach (ICD-10-PCS; principal; 2017-01-25 12:00)
DX: K43.0 Incisional hernia with obstruction, without gangrene (principal); N17.9 Acute kidney failure, unspecified; K56.50 Intestinal adhesions [bands], unspecified as to partial versus complete obstruction; I48.91 Unspecified atrial fibrillation; Z79.01 Long term (current) use of anticoagulants; I10 Essential (primary) hypertension; K21.9 Gastro-esophageal reflux disease without esophagitis; Z85.038 Personal history of other malignant neoplasm of large intestine; Z96.651 Presence of right artificial knee joint; R79.1 Abnormal coagulation profile